=== PATIENT | female | born 1965 | race Caucasian/White ===

== ENCOUNTER 2017-06-03 12:50 | Inpatient (IN) | payer OTHER ==
--- NOTE | 2017-06-03 13:36 | PDOC ---
History of Present Illness - General Chief Complaint: SIRS, Suspected/Possible Stated Complaint: NAUSEA/VOMITING Time Seen by Provider: 06/03/17 13:35 History Source: Patient - History of Present Illness Initial Comments: 06/03/17 14:02 CC: 4 day h/o fever Patient is a 52 y.o. female with a PMH of Aortic Valve replacement ( biosynthetic valve), HTN, Anxiety/Depression who presents c/o 4 day h/o of fever with 1 day h/o vomiting (non-bloody, yellow) and diarrhea (watery, non- odorous, non-bloody). Patient's daughter @ bedside states patient tried Theraflu @ onset of fever, however it did not work, so she contacted patient's PCP, Dr. Lovelace today who recommended ED evaluation. Patient denies any recent travel, sick contacts or medications changes. Patient further denies any chest pain, shortness of breath or abdominal pain. Past History - Past Medical History Allergies/Adverse Reactions: Allergies Allergy/AdvReac Type Severity Reaction Status Date / Time aspirin Allergy Rash Verified 06/03/17 13:23 Home Medications: Ambulatory Orders Zolpidem Tartrate [Ambien] 10 mg PO HS 11/02/13 Lorazepam 1 mg PO BID 06/03/17 Sertraline HCl 50 mg PO ACDIN 06/03/17 Anemia: Yes Asthma: No Cancer: No Cardiac Disorders: Yes (mitral valve replacement, pace maker) CVA: No COPD: No CHF: No Dementia: No Diabetes: No GI Disorders: No Disorders: No HTN: Yes Hypercholesterolemia: No Liver Disease: No Psychiatric Problems: Yes (depression) Seizures: No Thyroid Disease: No - Surgical History Abdominal Surgery: No Appendectomy: No Cardiac Surgery: Yes (mitral valve replacement) Cholecystectomy: No Lung Surgery: No Orthopedic Surgery: No - Immunization History Immunization Up to Date: Yes - Psycho/Social/Smoking Cessation Hx Suicidal Ideation: No Smoking History: Never smoked Hx Alcohol Use: No Drug/Substance Use Hx: No Substance Use Type: None Hx Substance Use Treatment: No Review of Systems - Review of Systems Constitutional: Yes: Chills, Fever HEENTM: No: Blurred Vision, Throat Pain Respiratory: No: Cough, Shortness of Breath Cardiac (ROS): No: Chest Pain, Edema, Lightheadedness, Palpitations ABD/GI: Yes: Diarrhea, Vomiting : Yes: Flank Pain, Urgency Neurological: No: Headache, Numbness, Seizure, Tingling Psychiatric: Yes: Anxiety, Depression All Other Systems: Reviewed and Negative *Physical Exam - Vital Signs Last Vital Signs Temp Pulse Resp BP Pulse Ox 102.1 F H 118 H 20 86/39 98 06/03/17 13:00 06/03/17 13:00 06/03/17 13:00 06/03/17 13:00 06/03/17 13:00 - Physical Exam General Appearance: Yes: Nourished, Appropriately Dressed Neck: positive: Trachea midline, Supple Respiratory/Chest: positive: Lungs Clear, Normal Breath Sounds Cardiovascular: positive: Regular Rhythm, Regular Rate, S1, S2 Gastrointestinal/Abdominal: positive: Normal Bowel Sounds, Soft Musculoskeletal: positive: Normal Inspection, CVA Tenderness (L) Integumentary: positive: Normal Color, Dry, Warm 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 female who presents c/o 4 day h/o of fever with associated vomiting and diarrhea. Patient is SIRS 2/4 (febrile, tachycardia 100's) and c/ o flank pain + dysuria. Suspected source is UTI. PLAN 1. UA/UC 2. CBC, CMP 3. 1 L IV NS 4. Tylenol for fever 06/03/17 15:29 CBC significant for leukocytosis (25). UA significant for 2+ blood, 2+ Leukocyte Esterase. Spoke with Dr. Lynn Pate (admits for Dr. Lovelace). Recommends ICU admission. Accepted for ICU admission as per Dr. Vargas @ 1544 *DC/Admit/Observation/Transfer Diagnosis at time of Disposition: Sepsis - Referrals Referrals: Herminio Lovelace MD [Primary Care Provider] -
--- NOTE | 2017-06-03 13:43 | PDOC ---
Attending Attestation - Resident Resident Name: Dianelys Maya - ED Attending Attestation I have performed the following: I have examined & evaluated the patient, The case was reviewed & discussed with the resident, I agree w/resident's findings & plan, Exceptions are as noted - Physicial Exam PE: GENERAL: Awake, alert, and fully oriented, in no acute distress. Appears ill but nontoxic. HEAD: No signs of trauma EYES: PERRLA, EOMI, sclera anicteric, conjunctiva clear ENT: Auricles normal inspection, hearing grossly normal, nares patent, oropharynx clear without exudates. Dry mucosa NECK: Normal ROM, supple, no lymphadenopathy, JVD, or masses LUNGS: Breath sounds equal, clear to auscultation bilaterally. No wheezes, and no crackles HEART: Tachycardic, +Systolic murmur IV/, no murmurs, rubs or gallops ABDOMEN: Soft, nontender, normoactive bowel sounds. No guarding, no rebound. No masses. +R CVAT. EXTREMITIES: Normal range of motion, no edema. No clubbing or cyanosis. No cords, erythema, or tenderness NEUROLOGICAL: Cranial nerves II through XII grossly intact. Normal speech. Motor and sensation intact. Gait not tested due to hypotension. SKIN: Warm, Dry, normal turgor, no rashes or lesions noted. - Medical Decision Making 06/03/17 14:24 52 yo F history aortic valve replacement presents with fever, N/V/D. Sepsis protocol initiated. Suspect urinary source. Will hydrate and give antipyretics. <Marianela Munoz - Last Filed: 06/03/17 14:22> - HPI HPI: 06/03/17 14:27 Patient is a 52 year old female with pmhx of AVR who presents to the ED with vomiting and fever. Patient reports 4 days of fever with one episode of vomiting today, NB. Patient also reports right flank pain and dysuria. She notes that her PMD prescribed her some medication for her symptoms but the pharmacy is closed today. She also reports low BP at home. PCP - Dr. Lovelace - Medical Decision Making 06/03/17 14:27 Documentation prepared by MONICA Sorenson, acting as medical assistant for Marianela Munoz MD. <Alecia Montague - Last Filed: 06/03/17 15:43>
[2017-06-03] MEDS ORDERED: SODIUM CHLORIDE 1,000 ML IV STA ×3 (14:00→16:38)
[2017-06-03] MEDS ORDERED: ACETAMINOPHEN 1000 MG/100 ML VIAL (NON FORMULARY) IVPB ONE (14:17)
[2017-06-03] MEDS ORDERED: ACETAMINOPHEN INJECTION 100 ML IVPB ONE (14:20)
[2017-06-03 14:29] LABS: MCH 29.6 pg (25.7-33.7); MCHC 33.5 g/dl (32.0-36.0); MEAN CELL VOLUME 88.4 fl (80-96); MEAN PLT VOLUME 8.8 fl (7.5-11.1); PLATELET COUNT 271 K/MM3 (134-434); RDW 13.5 % (11.6-15.6)
[2017-06-03 14:36] LABS: URINE APPEARANCE CLOUDY; URINE BLOOD 2+ (NEGATIVE); URINE COLOR AMBER; URINE GLUCOSE (UA) NEGATIVE (NEGATIVE); URINE KETONE TRACE (NEGATIVE); URINE NITRITE NEGATIVE (NEGATIVE); URINE UROBILINOGEN 4.0 E.U/dl mg/dL (0.2-1.0)
[2017-06-03 14:43] LABS: VENOUS BLOOD GAS HCO3 23.2 meq/L (19-25); VENOUS PH 7.42 (7.32-7.42)
[2017-06-03 14:43] LABS: INR 1.31 (0.82-1.09); PROTHROMBIN TIME (PATIENT) 14.5 SEC (9.98-11.88)
[2017-06-03 14:46] LABS: ACTIVATED PTT 33.2 SECONDS (26.9-34.4)
[2017-06-03 14:52] LABS: URINE LEUK ESTERASE 2+ (NEGATIVE); URINE PROTEIN 2+ (NEGATIVE)
[2017-06-03 14:55] LABS: ALBUMIN 3.2 g/dl (3.4-5.0); ANION GAP 13 (8-16); BILIRUBIN,TOTAL 2.1 mg/dL (0.2-1.0); CO2 23 mmol/L (21-32); CREATININE 1.6 mg/dL (0.55-1.02); GLUCOSE,RANDOM 126 mg/dL (74-106); SGOT/AST 35 U/L (15-37); SGPT/ALT 71 U/L (12-78); TOT PROT 6.7 g/dl (6.4-8.2)
[2017-06-03 14:58] LABS: ALK PHOS 264 U/L (45-117); CPK 88 IU/L (26-192)
[2017-06-03 14:59] LABS: URINE BACTERIA MANY /hpf (NONE SEEN); URINE MUCUS MANY; URINE RBC 26 /hpf (0-3); URINE WBC 179 /hpf (3-5)
[2017-06-03] MEDS ORDERED: PIPERACILLIN/TAZOB 2.25 GM 2.25 GM in DEXTROSE 5%-WATER - 50 ML IVPB ONE (15:04)
[2017-06-03] MEDS ORDERED: PIPERACILLIN/TAZOB 3.375 GM 3.375 GM in DEXTROSE 5%-WATER - 50 ML IVPB ONE (15:13)
[2017-06-03] MEDS ORDERED: PIPERACILLIN/TAZOB 3.375 GM 50 ML IVPB ONE (15:19)
[2017-06-03 15:23] LABS: TROPONIN I < 0.02 ng/ml (0.00-0.05)
[2017-06-03 15:46] LABS: BASOPHIL (MANUAL) 0 % (0-2.0); PLATELET ESTIMATE ADEQUATE (NORMAL)
[2017-06-03] MEDS ORDERED: ACETAMINOPHEN 325 MG TABLET (FP) PO PRN (15:51)
[2017-06-03] MEDS ORDERED: SODIUM CHLORIDE 0.9% 1000 ML INFUS.BAG IV ONE (15:52)
--- NOTE | 2017-06-03 15:54 | HP ---
Admitting History and Physical - Primary Care Physician PCP: Herminio Lovelace - Admission Chief Complaint: fever/ not feeling well History of Present Illness: Patient is a 52 y.o. female with a PMH of Aortic Valve replacement ( biosynthetic valve), HTN, Anxiety/Depression who presents c/o 4 day h/o of fever with 1 day h/o vomiting (non-bloody, yellow). also complains of urinary burning Patient's sister @ bedside states patient tried Theraflu @ onset of fever, however it did not work, so she contacted patient's PCP, Dr. Lovelace today who recommended ED evaluation. Patient denies any recent travel, sick contacts or medications changes. Patient further denies any chest pain, shortness of breath or abdominal pain. pt found to be hypotensive/ tachcardic and having fever pt given fluids and zosyn in er pt seen by me in er Case discussed with Er Resident. Pt to be admitted to icu for sepsis. History Source: Patient, Family Member Limitations to Obtaining History: No Limitations - Past Medical History ...LMP: 11/02/13 Psych: Yes: Anxiety - Past Surgical History Past Surgical History: Yes: Permanent Pacemaker, Valve Replacement - Smoking History Smoking history: Never smoked - Alcohol/Substance Use Hx Alcohol Use: No Home Medications - Allergies Allergies/Adverse Reactions: Allergies Allergy/AdvReac Type Severity Reaction Status Date / Time aspirin Allergy Rash Verified 06/03/17 13:23 - Home Medications Home Medications: Ambulatory Orders Zolpidem Tartrate [Ambien] 10 mg PO HS 11/02/13 Lorazepam 1 mg PO BID 06/03/17 Sertraline HCl 50 mg PO DAILY 06/03/17 Family Disease History - Family Disease History Family History: Unremarkable Review of Systems - Review of Systems Constitutional: reports: Fever, Weakness Eyes: reports: No Symptoms Neck: reports: No Symptoms Cardiovascular: reports: No Symptoms Respiratory: reports: No Symptoms Gastrointestinal: reports: Nausea, Vomiting Genitourinary: reports: Burning Psychiatric: reports: Anxiety Physical Examination Vital Signs: Vital Signs Temperature 102.1 F H 06/03/17 13:00 Pulse Rate 89 06/03/17 15:47 Respiratory Rate 20 06/03/17 15:47 Blood Pressure 83/52 06/03/17 15:47 O2 Sat by Pulse Oximetry (%) 100 06/03/17 15:47 Constitutional: Yes: Anxious, Mild Distress. No: No Distress Eyes: Yes: Conjunctiva Clear HENT: Yes: Other (thraot - clear) Neck: Yes: Supple Cardiovascular: Yes: Regular Rate and Rhythm Respiratory: Yes: CTA Bilaterally Edema: No Peripheral Pulses WNL: Yes Neurological: Yes: WNL, Alert Psychiatric: Yes: Alert Labs: CBC, BMP 06/03/17 14:00 06/03/17 14:00 Imaging - Results Chest X-ray: Report Reviewed Problem List - Problems (1) Sepsis Code(s): A41.9 - SEPSIS, UNSPECIFIED ORGANISM (2) Pyelonephritis Code(s): N12 - TUBULO-INTERSTITIAL NEPHRITIS, NOT SPCF ACUTE OR CHRONIC (3) Hypotension Code(s): I95.9 - HYPOTENSION, UNSPECIFIED (4) Anxiety Code(s): F41.9 - ANXIETY DISORDER, UNSPECIFIED (5) Depression Code(s): F32.9 - MAJOR DEPRESSIVE DISORDER, SINGLE EPISODE, UNSPECIFIED Assessment/Plan admit to icu abx fluids u/s kidneys i/d consult--Dr. Oseguera-- Discussed with ER resident Pt / sister reports has bio-prosthetic valve-- not on a/c. monitor closely cc time- 40 min will follow
[2017-06-03] MEDS: SODIUM CHLORIDE 1,000 ML IV SCH (15:59)
[2017-06-03 17:42] VITALS: BMI 19.1
--- NOTE | 2017-06-03 18:40 | CONSULT ---
Consult Consult Specialty:: ICU Referred by:: Dr. Steven Pate - History of Present Illness Chief Complaint: sepsis likely 2/2 UTI History of Present Illness: 52yo Malay-speaking woman with PMH of biosynthetic Aortic valve replacement ( 1yo ago) and pacemaker who presents with 4xdays of subjective fever/chills and concomitant R flank pain "with the fever". Patient describes urine feeling "hot " when she urinates, which started this morning. She had non-bloody, non- bilious emesis x3 and diarrhea (watery, non-bloody) this morning. Denies having any chest pain, chest palpitations or SOB. She contacted her primary care physician who suggested ED evaluation. Patient does not recall having a prior UTI. No recent infections or hospitalizations. She took prophylactic antibiotics prior to her dental cleaning appointment on 05/16/17 (does not recall specific antibiotic). [facility] ED course notable for: -SIRS 2/4 criteria (T 102.1 F, HR 118) -Leukocytosis (WBC 25K) -UA 2+ blood, 2+ LE, many bacteria, WBC 179, RBC 26 -BP range 86-95/39-60 - Past Medical History ...LMP: 11/02/13 - Alcohol/Substance Use Hx Alcohol Use: No - Smoking History Smoking history: Never smoked Home Medications - Allergies Allergies/Adverse Reactions: Allergies Allergy/AdvReac Type Severity Reaction Status Date / Time aspirin Allergy Rash Verified 06/03/17 13:23 - Home Medications Home Medications: Ambulatory Orders Zolpidem Tartrate [Ambien] 10 mg PO HS 11/02/13 Lorazepam 1 mg PO BID 06/03/17 Sertraline HCl 50 mg PO DAILY 06/03/17 Review of Systems - Review of Systems Constitutional: reports: Chills, Fever Cardiovascular: reports: No Symptoms Respiratory: reports: No Symptoms Gastrointestinal: reports: Diarrhea, Vomiting Genitourinary: reports: Burning, Flank Pain (R) Physical Exam Vital Signs: Vital Signs Temperature 99.6 F 06/03/17 17:59 Pulse Rate 70 06/03/17 17:59 Respiratory Rate 12 06/03/17 17:59 Blood Pressure 95/60 06/03/17 17:59 O2 Sat by Pulse Oximetry (%) 100 06/03/17 17:20 Constitutional: Yes: Well Nourished, No Distress, Calm Eyes: Yes: Conjunctiva Clear. No: Sclera Icterus HENT: Yes: WNL Neck: Yes: Supple. No: Lymphadenopathy Cardiovascular: Yes: Regular Rate and Rhythm, Other (well-healed vertical scar over sternum). No: Gallop, Murmur Respiratory: Yes: CTA Bilaterally Gastrointestinal: Yes: Normal Bowel Sounds, Soft, Other (well healed, epigastric trochar incisions sites (AoVR)). No: Distention, Tenderness Renal/: Yes: Other (mild suprapubic tenderness to deep palpation, mild R CVA tenderness) Edema: No Peripheral Pulses WNL: Yes (2+ DP/PT pulses bilaterally) Labs: 06/03/17 14:00 06/03/17 14:00 INR, PTT INR 1.31 (0.82-1.09) H D 06/03/17 14:00 06/03/17 06/03/17 06/03/17 14:00 14:00 15:50 Lactic Acid 2.5 H* 0.9 Calcium 9.0 Total Bilirubin 2.1 H D AST 35 D ALT 71 D Alkaline Phosphatase 264 H D Creatine Kinase 88 Troponin I < 0.02 Total Protein 6.7 Albumin 3.2 L Urine Color Valentina 06/03/17 14:00 Urine Appearance Cloudy 06/03/17 14:00 Urine pH 5.0 (5.0-8.0) 06/03/17 14:00 Ur Specific [place] 1.025 (1.005-1.025) 06/03/17 14:00 Urine Protein 2+ (NEGATIVE) H 06/03/17 14:00 Urine Glucose (UA) Negative (NEGATIVE) 06/03/17 14:00 Urine Ketones Trace (NEGATIVE) H 06/03/17 14:00 Urine Blood 2+ (NEGATIVE) H 06/03/17 14:00 Urine Nitrite Negative (NEGATIVE) 06/03/17 14:00 Urine Bilirubin 4.0 (NEGATIVE) 06/03/17 14:00 Ur Leukocyte Esterase 2+ (NEGATIVE) H 06/03/17 14:00 Urine RBC 26 /hpf (0-3) 06/03/17 14:00 Urine WBC 179 /hpf (3-5) 06/03/17 14:00 Ur Epithelial Cells Moderate /hpf (FEW) 06/03/17 14:00 Urine Bacteria Many /hpf (NONE SEEN) 06/03/17 14:00 Urine Mucus Many 06/03/17 14:00 Microbiology: Urine Culture - collected 06/03 - pending Blood Culture x2 - collected 06/03 - pending Imaging - Results Chest X-ray: Image Reviewed (No pneumothorax, pleural effusion, or focal consolidation) Assessment/Plan 52yo woman who presents with sepsis likely 2/2 to UTI. CXR revealed no acute pathology. The patient's BP is responding to fluid resuscitation (s/p 4L NS boluses) and her lactic acid is downtrending (2.5 --> 0.9). She is currently afebrile after receiving Acetaminophen. Her labs are notable for significant leukocytosis (WBC 25K) and UA reflecting hematuria and pyuria. #ID -ID consulted -Zosyn 3.375gm IVPB - (received 1 dose ED, 1 dose for 23:00) -Urine/blood cultures pending -Acetaminophen 650mg PO Q6H for fever or pain #CV -patient currently responding to fluid resuscitation s/p 4L NS boluses -Continue 150cc/hr NS -Monitor HD #Renal- patient likely has CALLIE (last recorded Cr - 02/2016, Cr 8 - 05/2015) -Continue fluid resuscitation -Monitor BUN, Cr #F/E/N -IVF - 150cc/hr NS -Monitor daily lytes -Regular diet #PPX -DVT - Heparin 5000U SQ BID -GI ppx not indicated Adriane Joya, PGY-1 Visit type - Emergency Visit Emergency Visit: No - New Patient This patient is new to me today: Yes Date on this admission: 06/03/17 - Critical Care Critical Care patient: Yes Total Critical Care Time (in minutes): 40 Critical Care Statement: The care of this patient involved high complexity decision making to prevent further life threatening deterioration of the patient 's condition and/or to evaluate & treat vital organ system(s) failure or risk of failure.
--- NOTE | 2017-06-03 20:37 | CONSULT ---
Consult Consult Specialty:: Pulm/CCM Reason for Consultation:: UTI, severe sepsis, CALLIE - History of Present Illness History of Present Illness: This is a 52 yo woman PMH: AVR, PPM who presented to ED with 4 days of fever, right sided flank pain, burning urination and nausea and vomiting (NBNBx3). In ED she was found to have be febrile (102), hypotensive (BP 80/40) with leukocytosis (wbc 25), CALLIE (SCr1.6) with pyuria (wbc 127). She was given IV fluids (NS x4) with good response in BP (100/50s). Lactate 0.9. ABX started: zosyn. CXR: w/o focal infiltrate. Patient admitted to ICU for severe sepsis. In the ICU patient awake and alert, hemodynamically stable. - History Source History Provided By: Family Member, Medical Record Limitations to Obtaining History: Language Barrier - Past Medical History ...LMP: 11/02/13 - Past Surgical History Past Surgical History: Yes: Permanent Pacemaker Additional Surgical History: AVR: biosynthetic 2015 - Alcohol/Substance Use Hx Alcohol Use: No - Smoking History Smoking history: Never smoked Home Medications - Allergies Allergies/Adverse Reactions: Allergies Allergy/AdvReac Type Severity Reaction Status Date / Time aspirin Allergy Rash Verified 06/03/17 13:23 - Home Medications Home Medications: Ambulatory Orders Zolpidem Tartrate [Ambien] 10 mg PO HS 11/02/13 Lorazepam 1 mg PO BID 06/03/17 Sertraline HCl 50 mg PO DAILY 06/03/17 Family Disease History - Family Disease History Family History: Unremarkable Review of Systems - Review of Systems Constitutional: reports: Fever, Malaise Gastrointestinal: reports: Nausea, Vomiting Genitourinary: reports: Burning, Flank Pain, Frequency Physical Exam Vital Signs: Vital Signs Temperature 99.3 F 06/03/17 20:00 Pulse Rate 75 06/03/17 20:00 Respiratory Rate 22 06/03/17 20:00 Blood Pressure 92/55 06/03/17 20:00 O2 Sat by Pulse Oximetry (%) 100 06/03/17 18:30 Current Medications Acetaminophen (Tylenol -) 650 mg PO Q6H PRN PRN Reason: FEVER OR PAIN Chlorhexidine Gluconate (Hibiclens For Decolonization -) 1 applic TP HS [facility] Heparin Sodium (Porcine) (Heparin -) 5,000 unit SQ BID [facility] Sodium Chloride (Normal Saline -) 1,000 mls @ 150 mls/hr IV ASDIR [facility] Last Admin: 06/03/17 15:59 Dose: 150 mls/hr Mupirocin (Bactroban Ointment (For Decolonization) -) 1 applic NS BID [facility] Stop: 06/08/17 21:59 Piperacillin Sod/Tazobactam Sod (Zosyn 3.375gm Ivpb (Pre-Docked)) 3.375 gm IVPB Q8H [facility] PRN Reason: Protocol Stop: 06/05/17 07:44 Constitutional: Yes: No Distress Eyes: Yes: Conjunctiva Clear, EOM Intact Cardiovascular: Yes: Other (Paced) Respiratory: Yes: CTA Bilaterally Gastrointestinal: Yes: Normal Bowel Sounds Renal/: Yes: CVA Tenderness - Right Extremities: Yes: WNL Edema: No Neurological: Yes: Oriented Labs: CBCD WBC 25.0 K/mm3 (4.0-10.0) H D 06/03/17 14:00 RBC 3.62 M/mm3 (3.60-5.2) 06/03/17 14:00 Hgb 10.7 GM/dL (10.7-15.3) 06/03/17 14:00 Hct 32.0 % (32.4-45.2) L 06/03/17 14:00 MCV 88.4 fl (80-96) 06/03/17 14:00 MCHC 33.5 g/dl (32.0-36.0) 06/03/17 14:00 RDW 13.5 % (11.6-15.6) 06/03/17 14:00 Plt Count 271 K/MM3 (134-434) 06/03/17 14:00 MPV 8.8 fl (7.5-11.1) 06/03/17 14:00 CMP Sodium 134 mmol/L (136-145) L 06/03/17 14:00 Potassium 3.6 mmol/L (3.5-5.1) 06/03/17 14:00 Chloride 98 mmol/L (98-107) 06/03/17 14:00 Carbon Dioxide 23 mmol/L (21-32) 06/03/17 14:00 Anion Gap 13 (8-16) 06/03/17 14:00 BUN 20 mg/dL (7-18) H D 06/03/17 14:00 Creatinine 1.6 mg/dL (0.55-1.02) H D 06/03/17 14:00 Creat Clearance w eGFR 33.85 (>60) 06/03/17 14:00 Random Glucose 126 mg/dL (74-106) H D 06/03/17 14:00 Calcium 9.0 mg/dL (8.5-10.1) 06/03/17 14:00 Total Bilirubin 2.1 mg/dL (0.2-1.0) H D 06/03/17 14:00 AST 35 U/L (15-37) D 06/03/17 14:00 ALT 71 U/L (12-78) D 06/03/17 14:00 Alkaline Phosphatase 264 U/L (45-117) H D 06/03/17 14:00 Total Protein 6.7 g/dl (6.4-8.2) 06/03/17 14:00 Albumin 3.2 g/dl (3.4-5.0) L 06/03/17 14:00 CARDIAC ENZYMES Creatine Kinase 88 IU/L (26-192) 06/03/17 14:00 Troponin I < 0.02 ng/ml (0.00-0.05) 06/03/17 14:00 Imaging - Results Chest X-ray: Report Reviewed, Image Reviewed (No focal infiltrates) Problem List - Problems (1) UTI (urinary tract infection) Code(s): N39.0 - URINARY TRACT INFECTION, SITE NOT SPECIFIED (2) CALLIE (acute kidney injury) Code(s): N17.9 - ACUTE KIDNEY FAILURE, UNSPECIFIED Assessment/Plan a/p: 52 yo woman w/ UTI, CALLIE likely r//t dehydration, severe sepsis responsive to IVfluids -cont IVF -O2 for sat >90% -Incentive spirometry -cont ABX -culture: blood and urine -Call ID in AM for ABX approval -renal dose medications -DVT prophylaxis -stable for floor transfer in AM [facility] CRANEP Pulm/CCM CCT: 35m
[2017-06-03] MEDS: MUPIROCIN 2% TOPICAL OINTMENT FOR DECOLONIZATION NS SCH (21:21)
[2017-06-03] MEDS: HEPARIN NA (PORCINE) 5,000 UNITS/ML 1ML VIAL SQ SCH (21:21)
[2017-06-03] MEDS ORDERED: CHLORHEXIDINE GLUCONATE 4% CLEANSER FOR DECOLONIZATION TP SCH (22:00)
[2017-06-03] MEDS ORDERED: PIPERACILLIN/TAZOB 3.375 GM/50 ML PRE-DOCKED IVPB ONE ×2 (23:15→23:30)
[2017-06-04 06:14] LABS: BASOPHIL 0.3 % (0-2.0); MCHC 33.6 g/dl (32.0-36.0); MEAN CELL VOLUME 89.2 fl (80-96); MEAN PLT VOLUME 9.4 fl (7.5-11.1); NEUTROPHILS 80.5 % (42.8-82.8); PLATELET COUNT 261 K/MM3 (134-434); RDW 13.8 % (11.6-15.6); WHITE BLOOD COUNT 18.5 K/mm3 (4.0-10.0)
[2017-06-04 06:25] LABS: INR 1.28 (0.82-1.09); PROTHROMBIN TIME (PATIENT) 14.1 SEC (9.98-11.88)
[2017-06-04] MEDS ORDERED: PIPERACILLIN/TAZOB 3.375 GM/50 ML PRE-DOCKED IVPB SCH (07:45)
[2017-06-04 08:30] LABS: ALBUMIN 2.1 g/dl (3.4-5.0); ALK PHOS 186 U/L (45-117); ANION GAP 13 (8-16); BILIRUBIN,TOTAL 1.5 mg/dL (0.2-1.0); CALCIUM 7.7 mg/dL (8.5-10.1); CO2 18 mmol/L (21-32); CREATININE 1.1 mg/dL (0.55-1.02); GLUCOSE,RANDOM 95 mg/dL (74-106); SGPT/ALT 45 U/L (12-78); TOT PROT 4.8 g/dl (6.4-8.2)
[2017-06-04 08:31] LABS: SGOT/AST 27 U/L (15-37)
[2017-06-04] MEDS: SODIUM CHLORIDE 1,000 ML IV SCH ×2 (08:50→18:22)
--- NOTE | 2017-06-04 09:08 | PN ---
Physical Exam: 24H Events: O/N: Tmax 101.6, tachycardic AM: no acute events SUBJECTIVE: Patient seen and examined. Feeling better. No n/v. No dysuria this AM. 1xBM regular this AM. OBJECTIVE: Vital Signs Period Temp Pulse Resp BP Sys/Gregg Pulse Ox Last 24 Hr 98.4 F-101.6 F 69-103 12-27 85-120/53-72 100-100 GENERAL: The patient is awake, alert, and fully oriented, in no acute distress. EYES: sclera anicteric, conjunctiva clear ENT: oropharynx clear without exudates, moist mucous membranes LUNGS: CTAB, no wheezes, rales, or rhonchi HEART: rrr, normal s1/s2, no murmur, rub or gallop. ABDOMEN: Soft, nontender, nondistended : mild R CVA tenderness and mild suprapubic tenderness to deep palpation EXTREMITIES: 2+ pulses, wwp, no edema CBC, BMP 06/04/17 05:00 06/04/17 05:00 Urine Test Results Urine Color Valentina 06/03/17 14:00 Urine Appearance Cloudy 06/03/17 14:00 Urine pH 5.0 (5.0-8.0) 06/03/17 14:00 Ur Specific [place] 1.025 (1.005-1.025) 06/03/17 14:00 Urine Protein 2+ (NEGATIVE) H 06/03/17 14:00 Urine Glucose (UA) Negative (NEGATIVE) 06/03/17 14:00 Urine Ketones Trace (NEGATIVE) H 06/03/17 14:00 Urine Blood 2+ (NEGATIVE) H 06/03/17 14:00 Urine Nitrite Negative (NEGATIVE) 06/03/17 14:00 Urine Bilirubin 4.0 (NEGATIVE) 06/03/17 14:00 Ur Leukocyte Esterase 2+ (NEGATIVE) H 06/03/17 14:00 Urine RBC 26 /hpf (0-3) 06/03/17 14:00 Urine WBC 179 /hpf (3-5) 06/03/17 14:00 Ur Epithelial Cells Moderate /hpf (FEW) 06/03/17 14:00 Urine Bacteria Many /hpf (NONE SEEN) 06/03/17 14:00 Urine Mucus Many 06/03/17 14:00 Microbiology 06/03/17 13:45 Blood - Peripheral Venous Blood Culture - Preliminary Pending Organism (Anaerobic bottle - GN bacilli) Active Medications Acetaminophen (Tylenol -) 650 mg PO Q6H PRN PRN Reason: FEVER OR PAIN Last Admin: 06/04/17 02:10 Dose: 650 mg Chlorhexidine Gluconate (Hibiclens For Decolonization -) 1 applic TP HS [facility] Last Admin: 06/03/17 21:21 Dose: 1 applic Heparin Sodium (Porcine) (Heparin -) 5,000 unit SQ BID [facility] Last Admin: 06/03/17 21:21 Dose: 5,000 unit Sodium Chloride (Normal Saline -) 1,000 mls @ 150 mls/hr IV ASDIR [facility] Last Admin: 06/04/17 08:50 Dose: 150 mls/hr Mupirocin (Bactroban Ointment (For Decolonization) -) 1 applic NS BID [facility] Stop: 06/08/17 21:59 Last Admin: 06/03/17 21:21 Dose: 1 applic Piperacillin Sod/Tazobactam Sod (Zosyn 3.375gm Ivpb (Pre-Docked)) 3.375 gm IVPB Q8H [facility] PRN Reason: Protocol Stop: 06/05/17 07:44 ASSESSMENT/PLAN: 52yo woman who presents with severe sepsis likely 2/2 to UTI. The patient is HD stable s/p fluid resuscitation with improving leukocytosis on Zosyn IV. 1 out of 2 blood cultures grew GN bacilli. Spoke with Dr. James, patient can be transferred to Med/Surg. #ID -ID following, per recommendations increase Zosyn to 4.5gm IVPB -Acetaminophen 650mg PO Q6H for fever or pain -ECHO pending to r/o endocarditis -F/u Blood and urine cultures #CV: HD stable -Continue IVF -Monitor HD #Renal- Cr improving (1.6 -> 1.1) -Continue fluid resuscitation -Monitor BUN, Cr -Avoid nephrotoxic agens #F/E/N -IVF -Monitor daily lytes -Regular diet #PPX -DVT - Heparin 5000U SQ BID -GI ppx not indicated d/w Dr. Jenny Joya, PGY-1 Visit type - Emergency Visit Emergency Visit: No - New Patient This patient is new to me today: No - Critical Care Critical Care patient: Yes Total Critical Care Time (in minutes): 35 Critical Care Statement: The care of this patient involved high complexity decision making to prevent further life threatening deterioration of the patient 's condition and/or to evaluate & treat vital organ system(s) failure or risk of failure.
--- NOTE | 2017-06-04 09:10 | CONSULT ---
Consult Consult Specialty:: Infectious Disease Reason for Consultation:: Urosepsis - History of Present Illness Chief Complaint: fever History of Present Illness: 52 year old female pmh HTN, AV valve replacement (first in 1998, redone 1 year ago at [facility]), depression/anxiety, and pacemaker presents to the ED with 4 day hx of fever, 1 day hx of nonbloody emesis and diarrhea (now resolved) , and body aches. She states that she doesn't recall any inciting event. She states that she took theraflu for fevers, but the fever did not improve. Denies sick contacts, recent travel. Reports living alone with 2 dogs (pugs). In ED, pt was found to have hypotension (86/39), a lactic acid of 2.5, elevated T. bili and AP, and a Tmax of 101.2. A UA was done, which revealed cloudy urine with (+) leukocyte esterase and many bacteria (nitrite negative). She was transferred to the ICU and ID was consulted for management of suspected urosepsis. Denies chest pain, SOB, nausea, vomiting, fevers, chills, abdominal pain, diarrhea, dysuria, hematuria. - History Source History Provided By: Patient, Family Member (Sister) Limitations to Obtaining History: No Limitations - Past Medical History Cardio/Vascular: Yes: Other (Valve replacement 1 year ago) ...LMP: 11/02/13 Psych: Yes: Anxiety - Past Surgical History Past Surgical History: Yes: Permanent Pacemaker, Valve Replacement (Aortic valve replacement) Additional Surgical History: AVR: biosynthetic 2016 - Alcohol/Substance Use Hx Alcohol Use: No - Smoking History Smoking history: Never smoked - Social History Usual Living Arrangement: Alone Place of : Other ([facility]) History of Recent Travel: No Home Medications - Allergies Allergies/Adverse Reactions: Allergies Allergy/AdvReac Type Severity Reaction Status Date / Time aspirin Allergy Rash Verified 06/03/17 13:23 - Home Medications Home Medications: Ambulatory Orders Zolpidem Tartrate [Ambien] 10 mg PO HS 11/02/13 Lorazepam 1 mg PO BID 06/03/17 Sertraline HCl 50 mg PO DAILY 06/03/17 Review of Systems - Review of Systems Constitutional: reports: Fever Eyes: reports: Other (No vision in her R eye since ) HENT: reports: No Symptoms Neck: reports: No Symptoms Cardiovascular: reports: No Symptoms. denies: Chest Pain, Edema, Palpitations, Shortness of Breath Respiratory: denies: Cough, SOB Gastrointestinal: denies: Abdominal Pain, Bloating, Constipation, Diarrhea, Nausea, Vomiting Genitourinary: denies: Burning, Dysuria, Flank Pain, Frequency Musculoskeletal: reports: No Symptoms Integumentary: reports: No Symptoms Neurological: reports: No Symptoms Endocrine: reports: No Symptoms Hematology/Lymphatic: reports: No Symptoms Psychiatric: reports: Anxiety, Depression Physical Exam Vital Signs: Vital Signs Temperature 99.1 F 06/04/17 06:00 Pulse Rate 80 06/04/17 08:00 Respiratory Rate 14 06/04/17 08:00 Blood Pressure 102/63 06/04/17 08:00 O2 Sat by Pulse Oximetry (%) 100 06/03/17 21:00 Constitutional: Yes: No Distress, Calm. No: Anxious Eyes: Yes: Conjunctiva Clear, EOM Intact HENT: Yes: Atraumatic, Normocephalic. No: Nasal Congestion, Pharyngeal Erythema , Rhinnorhea Neck: Yes: Supple, Trachea Midline Cardiovascular: Yes: Regular Rate and Rhythm, S1, S2. No: JVD, Gallop, Murmur, Rub Respiratory: Yes: Regular, CTA Bilaterally. No: Rales, Rhonchi, SOB, Stridor, Tachypnea, Wheezes Gastrointestinal: Yes: Normal Bowel Sounds, Soft. No: Tenderness Musculoskeletal: Yes: WNL Extremities: Yes: WNL Edema: No Peripheral Pulses WNL: Yes Integumentary: Yes: WNL Neurological: Yes: Alert, Oriented ...Motor Strength: WNL Psychiatric: Yes: Alert, Oriented Labs: CBC, BMP 06/04/17 05:00 06/04/17 05:00 Imaging - Results Chest X-ray: Report Reviewed, Image Reviewed Assessment/Plan 52 year old female pmh HTN, AV replacement 1998 (redone last year), anxiety/ depression is being managed in the ICU with suspected urosepsis Urosepsis: BP improved and fever has remitted, patient appears clinically more stable. Aware of prosthetic aortic valve. -Blood cx grew gram (-) bacilli in anaerobic bottle -repeat blood cx in AM -f/u UCx and second blood Cx -Increase zosyn dose to 4.5g Q8hr for 7 days -WBC trending down, monitor in AM -LA has normalized -Order ESR/CRP Elevated LFTs: T bili and Alk Phos elevated but trending down -Order US abdomen and Pelvis/Renal to rule out intra-abdominal process -monitor LFTs in AM
--- NOTE | 2017-06-04 09:17 | PN ---
Teaching Attending Note Name of Resident: Joseph Liao ATTENDING PHYSICIAN STATEMENT I saw and evaluated the patient. I reviewed the resident's note and discussed the case with the resident. I agree with the resident's findings and plan as documented. SUBJECTIVE: four days of fever and chills at home some left lower back pain no dysuria one day of vomiting and diarrhea- now resolved admitted to ICU with fever, lactic acidosis and hypotension she has a bioprosthetic Aortic Valve original placed in 1998- redo last year, had PPM placed as well has not been hospitalized since followed by Dr Sahu OBJECTIVE: Vital Signs Period Temp Pulse Resp BP Sys/Gregg Pulse Ox Last 24 Hr 98.4 F-102.1 F 69-118 12-27 83-120/39-72 98-100 cor-rrr healed sternal incision PPM site no erythema lungs decreased bs at bases abd soft,nt no RUQ pain no CVAT ext no edema no rash CBC, BMP 06/04/17 05:00 06/04/17 05:00 Microbiology 06/03/17 13:45 Blood - Peripheral Venous Blood Culture - Preliminary Pending Organism ASSESSMENT AND PLAN: sepsis gram negative bacteremia UTI abnl lfts-r/o cholycystitis bioprosthetic AVR/PPM continue zosyn- adjust for improving renal function sonogram gallbladder (abnl lfts), bladder, kidney repeat blood cultures in am esr/crp Problem List - Problems (1) Sepsis Code(s): A41.9 - SEPSIS, UNSPECIFIED ORGANISM (2) Gram negative septicemia Code(s): A41.50 - GRAM-NEGATIVE SEPSIS, UNSPECIFIED (3) UTI (urinary tract infection) Code(s): N39.0 - URINARY TRACT INFECTION, SITE NOT SPECIFIED (4) LFTs abnormal Code(s): R79.89 - OTHER SPECIFIED ABNORMAL FINDINGS OF BLOOD CHEMISTRY (5) H/O heart valve replacement with bioprosthetic valve Code(s): Z95.3 - PRESENCE OF XENOGENIC HEART VALVE
[2017-06-04] MEDS ORDERED: PIPERACILLIN/TAZOB 4.5 GM 4.5 GM in DEXTROSE 5%-WATER 100 ML IVPB SCH (10:00)
[2017-06-04] MEDS ORDERED: SERTRALINE HCL 50 MG TABLET (FP) PO SCH (10:00)
[2017-06-04] MEDS ORDERED: LORazepam 1 MG TABLET PO SCH (10:00)
[2017-06-04] MEDS ORDERED: PIPERACILLIN/TAZOB 4.5 GM 100 ML IVPB SCH (10:00)
[2017-06-04] MEDS ORDERED: SODIUM CHLORIDE 1,000 ML IV SCH (10:04)
--- NOTE | 2017-06-04 10:05 | PN ---
Progress Note, Physician Chief Complaint: sister at bedside events noted no chest pain , no sob - Current Medication List Current Medications: Active Medications Acetaminophen (Tylenol -) 650 mg PO Q6H PRN PRN Reason: FEVER OR PAIN Last Admin: 06/04/17 02:10 Dose: 650 mg Chlorhexidine Gluconate (Hibiclens For Decolonization -) 1 applic TP HS [facility] Last Admin: 06/03/17 21:21 Dose: 1 applic Heparin Sodium (Porcine) (Heparin -) 5,000 unit SQ BID [facility] Last Admin: 06/03/17 21:21 Dose: 5,000 unit Sodium Chloride (Normal Saline -) 1,000 mls @ 150 mls/hr IV ASDIR [facility] Last Admin: 06/04/17 08:50 Dose: 150 mls/hr Piperacillin Sod/Tazobactam Sod (Zosyn 4.5gm Ivpb (Pre-Docked)) 100 mls @ 200 mls/hr IVPB Q8H-IV [facility] PRN Reason: Protocol Lorazepam (Ativan -) 1 mg PO BID [facility] Mupirocin (Bactroban Ointment (For Decolonization) -) 1 applic NS BID [facility] Stop: 06/08/17 21:59 Last Admin: 06/03/17 21:21 Dose: 1 applic Sertraline HCl (Zoloft -) 50 mg PO DAILY [facility] Zolpidem Tartrate (Ambien -) 10 mg PO [facility] - Objective Vital Signs: Vital Signs Temperature 99.1 F 06/04/17 06:00 Pulse Rate 80 06/04/17 08:00 Respiratory Rate 14 06/04/17 08:00 Blood Pressure 102/63 06/04/17 08:00 O2 Sat by Pulse Oximetry (%) 100 06/03/17 21:00 Constitutional: Yes: No Distress, Calm Cardiovascular: Yes: Regular Rate and Rhythm, Murmur Respiratory: Yes: CTA Bilaterally Gastrointestinal: Yes: Normal Bowel Sounds, Soft, Tenderness (rt upper quadrant) . No: Distention Edema: No Labs: CBC, BMP 06/04/17 05:00 06/04/17 05:00 INR, PTT INR 1.28 (0.82-1.09) H 06/04/17 05:00 Problem List - Problems (1) CALLIE (acute kidney injury) Code(s): N17.9 - ACUTE KIDNEY FAILURE, UNSPECIFIED (2) Anxiety Code(s): F41.9 - ANXIETY DISORDER, UNSPECIFIED (3) Gram negative septicemia Code(s): A41.50 - GRAM-NEGATIVE SEPSIS, UNSPECIFIED (4) H/O heart valve replacement with bioprosthetic valve Code(s): Z95.3 - PRESENCE OF XENOGENIC HEART VALVE (5) Pyelonephritis Code(s): N12 - TUBULO-INTERSTITIAL NEPHRITIS, NOT SPCF ACUTE OR CHRONIC Assessment/Plan PLAN Check Echo h/o valve placement in 1998 and then in 2014 Blood cultures positive on iv antibiotic BP is better Cardiology evaluation spoke with ID DVT prophylaxis-- Heparin sc decrease iv fluids has tenderness in rt upper quadrant, Alk PO4 is elevated-- check sono
[2017-06-04] MEDS ORDERED: PT OWN MED DRAWER 7, Y5N ONE (10:38)
[2017-06-04] MEDS: HEPARIN NA (PORCINE) 5,000 UNITS/ML 1ML VIAL SQ SCH ×2 (10:41→21:54)
--- NOTE | 2017-06-04 13:18 | PN ---
Teaching Attending Note Name of Resident: Adriane Joya ATTENDING PHYSICIAN STATEMENT I saw and evaluated the patient. I reviewed the resident's note and discussed the case with the resident. I agree with the resident's findings and plan as documented. SUBJECTIVE: Patient seen and examined in the ICU. Awake and alert. Some mild right flank discomfort. Denies CP. Minimal dry cough. BP improved. Intake & Output 06/01/17 06/02/17 06/03/17 06/04/17 23:59 23:59 23:59 23:59 Intake Total 3500 1940 Balance 3500 1940 Weight 120 lb 12.8 oz 118 lb 4.8 oz Last Vital Signs Temp Pulse Resp BP Pulse Ox 99.1 F 72 22 107/63 100 06/04/17 06:00 06/04/17 10:00 06/04/17 10:00 06/04/17 10:00 06/04/17 09:00 Active Medications Acetaminophen (Tylenol -) 650 mg PO Q6H PRN PRN Reason: FEVER OR PAIN Last Admin: 06/04/17 02:10 Dose: 650 mg Chlorhexidine Gluconate (Hibiclens For Decolonization -) 1 applic TP HS [facility] Last Admin: 06/03/17 21:21 Dose: 1 applic Heparin Sodium (Porcine) (Heparin -) 5,000 unit SQ BID [facility] Last Admin: 06/04/17 10:41 Dose: 5,000 unit Piperacillin Sod/Tazobactam Sod (Zosyn 4.5gm Ivpb (Pre-Docked)) 100 mls @ 200 mls/hr IVPB Q8H-IV [facility] PRN Reason: Protocol Last Admin: 06/04/17 10:41 Dose: 200 mls/hr Sodium Chloride (Normal Saline -) 1,000 mls @ 80 mls/hr IV ASDIR [facility] Last Admin: 06/04/17 10:42 Dose: 80 mls/hr Lorazepam (Ativan -) 1 mg PO BID [facility] Last Admin: 06/04/17 10:41 Dose: 1 mg Mupirocin (Bactroban Ointment (For Decolonization) -) 1 applic NS BID [facility] Stop: 06/08/17 21:59 Last Admin: 06/03/17 21:21 Dose: 1 applic Sertraline HCl (Zoloft -) 50 mg PO DAILY [facility] Last Admin: 06/04/17 10:41 Dose: 50 mg Zolpidem Tartrate (Ambien -) 10 mg PO HS [facility] Constitutional: Yes: No Distress Eyes: Yes: Conjunctiva Clear, EOM Intact Cardiovascular: Yes: Other (Paced) Respiratory: Yes: CTA Bilaterally Gastrointestinal: Yes: Normal Bowel Sounds Renal/: Yes: CVA Tenderness - Right Extremities: Yes: WNL Edema: No Neurological: Yes: Oriented Labs: Laboratory Results - last 24 hr 06/03/17 06/03/17 06/03/17 14:00 14:00 14:00 WBC 25.0 H D RBC 3.62 Hgb 10.7 Hct 32.0 L MCV 88.4 MCH 29.6 MCHC 33.5 RDW 13.5 Plt Count 271 MPV 8.8 Neutrophils % Y Neutrophils % (Manual) 75 Band Neuts % (Manual) 14 H Lymphocytes % Y Lymphocytes % (Manual) 5 L Monocytes % Monocytes % (Manual) 6 Eosinophils % Eosinophils % (Manual) 0 Basophils % Basophils % (Manual) 0 Platelet Estimate Adequate INR PTT (Actin FS) VBG pH POC VBG pCO2 POC VBG pO2 Mixed VBG HCO3 Sodium 134 L Potassium 3.6 Chloride 98 Carbon Dioxide 23 Anion Gap 13 BUN 20 H D Creatinine 1.6 H D Creat Clearance w eGFR 33.85 Random Glucose 126 H D Lactic Acid Calcium 9.0 Total Bilirubin 2.1 H D AST 35 D ALT 71 D Alkaline Phosphatase 264 H D Creatine Kinase 88 Troponin I < 0.02 C-Reactive Protein Total Protein 6.7 Albumin 3.2 L Urine Color Valentina Urine Appearance Cloudy Urine pH 5.0 Ur Specific [place] 1.025 Urine Protein 2+ H Urine Glucose (UA) Negative Urine Ketones Trace H Urine Blood 2+ H Urine Nitrite Negative Urine Bilirubin 4.0 Urine Urobilinogen 4.0 e.u/dl H Ur Leukocyte Esterase 2+ H Urine RBC 26 Urine WBC 179 Ur Epithelial Cells Moderate Urine Bacteria Many Urine Mucus Many Blood Type Antibody Screen 06/03/17 06/03/17 06/03/17 14:00 14:00 14:00 WBC RBC Hgb Hct MCV MCH MCHC RDW Plt Count MPV Neutrophils % Neutrophils % (Manual) Band Neuts % (Manual) Lymphocytes % Lymphocytes % (Manual) Monocytes % Monocytes % (Manual) Eosinophils % Eosinophils % (Manual) Basophils % Basophils % (Manual) Platelet Estimate INR 1.31 H D PTT (Actin FS) 33.2 VBG pH POC VBG pCO2 POC VBG pO2 Mixed VBG HCO3 Sodium Potassium Chloride Carbon Dioxide Anion Gap BUN Creatinine Creat Clearance w eGFR Random Glucose Lactic Acid 2.5 H* Calcium Total Bilirubin AST ALT Alkaline Phosphatase Creatine Kinase Cancelled Troponin I Cancelled C-Reactive Protein Total Protein Albumin Urine Color Urine Appearance Urine pH Ur Specific [place] Urine Protein Urine Glucose (UA) Urine Ketones Urine Blood Urine Nitrite Urine Bilirubin Urine Urobilinogen Ur Leukocyte Esterase Urine RBC Urine WBC Ur Epithelial Cells Urine Bacteria Urine Mucus Blood Type Antibody Screen 06/03/17 06/03/17 06/03/17 14:00 14:41 15:50 WBC RBC Hgb Hct MCV MCH MCHC RDW Plt Count MPV Neutrophils % Neutrophils % (Manual) Band Neuts % (Manual) Lymphocytes % Lymphocytes % (Manual) Monocytes % Monocytes % (Manual) Eosinophils % Eosinophils % (Manual) Basophils % Basophils % (Manual) Platelet Estimate INR PTT (Actin FS) VBG pH 7.42 POC VBG pCO2 36.3 L POC VBG pO2 32.4 Mixed VBG HCO3 23.2 Sodium Potassium Chloride Carbon Dioxide Anion Gap BUN Creatinine Creat Clearance w eGFR Random Glucose Lactic Acid 0.9 Calcium Total Bilirubin AST ALT Alkaline Phosphatase Creatine Kinase Troponin I C-Reactive Protein Total Protein Albumin Urine Color Urine Appearance Urine pH Ur Specific [place] Urine Protein Urine Glucose (UA) Urine Ketones Urine Blood Urine Nitrite Urine Bilirubin Urine Urobilinogen Ur Leukocyte Esterase Urine RBC Urine WBC Ur Epithelial Cells Urine Bacteria Urine Mucus Blood Type O POSITIVE Antibody Screen Negative 06/04/17 06/04/17 06/04/17 05:00 05:00 05:00 WBC 18.5 H RBC 3.07 L Hgb 9.2 L D Hct 27.4 L MCV 89.2 MCH 30.0 MCHC 33.6 RDW 13.8 Plt Count 261 MPV 9.4 Neutrophils % 80.5 D Neutrophils % (Manual) Band Neuts % (Manual) Lymphocytes % 8.5 D Lymphocytes % (Manual) Monocytes % 10.7 H Monocytes % (Manual) Eosinophils % 0.0 D Eosinophils % (Manual) Basophils % 0.3 Basophils % (Manual) Platelet Estimate INR 1.28 H PTT (Actin FS) 24.0 L VBG pH POC VBG pCO2 POC VBG pO2 Mixed VBG HCO3 Sodium 141 Potassium 3.7 Chloride 110 H D Carbon Dioxide 18 L D Anion Gap 13 BUN 14 D Creatinine 1.1 H D Creat Clearance w eGFR 52.16 Random Glucose 95 D Lactic Acid Calcium 7.7 L Total Bilirubin 1.5 H D AST 27 D ALT 45 D Alkaline Phosphatase 186 H D Creatine Kinase Troponin I C-Reactive Protein 25.0 H Total Protein 4.8 L D Albumin 2.1 L D Urine Color Urine Appearance Urine pH Ur Specific [place] Urine Protein Urine Glucose (UA) Urine Ketones Urine Blood Urine Nitrite Urine Bilirubin Urine Urobilinogen Ur Leukocyte Esterase Urine RBC Urine WBC Ur Epithelial Cells Urine Bacteria Urine Mucus Blood Type Antibody Screen 06/04/17 05:00 WBC RBC Hgb Hct MCV MCH MCHC RDW Plt Count MPV Neutrophils % Neutrophils % (Manual) Band Neuts % (Manual) Lymphocytes % Lymphocytes % (Manual) Monocytes % Monocytes % (Manual) Eosinophils % Eosinophils % (Manual) Basophils % Basophils % (Manual) Platelet Estimate INR PTT (Actin FS) VBG pH POC VBG pCO2 POC VBG pO2 Mixed VBG HCO3 Sodium Potassium Chloride Carbon Dioxide Anion Gap BUN Creatinine Creat Clearance w eGFR Random Glucose Lactic Acid 0.7 Calcium Total Bilirubin AST ALT Alkaline Phosphatase Creatine Kinase Troponin I C-Reactive Protein Total Protein Albumin Urine Color Urine Appearance Urine pH Ur Specific [place] Urine Protein Urine Glucose (UA) Urine Ketones Urine Blood Urine Nitrite Urine Bilirubin Urine Urobilinogen Ur Leukocyte Esterase Urine RBC Urine WBC Ur Epithelial Cells Urine Bacteria Urine Mucus Blood Type Antibody Screen Problem List - Problems (1) UTI (urinary tract infection) Code(s): N39.0 - URINARY TRACT INFECTION, SITE NOT SPECIFIED (2) CALLIE (acute kidney injury) Code(s): N17.9 - ACUTE KIDNEY FAILURE, UNSPECIFIED (3) Sepsis Assessment/Plan ECHO to R/O endocarditis IVF ABX O2 to maintain saturation Follow final cultures Cardiac Telemetry monitoring Dr Alvarado CCTime 35" The care of this patient involved high complexity decision making to prevent further life threatening deterioration of the patient's condition and/or to evaluate & treat vital organ system(s) failure or risk of failure.
[2017-06-04] MEDS: MUPIROCIN 2% TOPICAL OINTMENT FOR DECOLONIZATION NS SCH ×2 (14:24→21:53)
--- NOTE | 2017-06-04 16:01 | CON.CARD ---
Consult Consult Specialty:: cardiololgy Reason for Consultation:: hx aortic valve replacement; now septic - History of Present Illness Chief Complaint: Presently A&Ox3; no chest pain or dyspnea. History of Present Illness: 52 yr old woman with PMHx metallic aortic valve placed 1998, replaced by bioprosthetic aortic valve 03/2016 at [facility], s/p [employer] DDDR PPM , non-obstructive CAD by coronary angiogram 2015, anxiety/depression, anemia, HTN, hyperlipidemia, chronic lower back pain, insomnia, now admitted with fever and weakness x 4 days, and nausea and vomiting for one day. Denies chest pain or dyspnea; denies dysuria; denies cough. - History Source History Provided By: Patient, Medical Record Limitations to Obtaining History: No Limitations - Past Medical History Cardio/Vascular: Yes: HTN, Hyperlipdemia, Murmur, Other (bioprosthetic aortic valve replacement 1 year ago, after metallic aortic valve placement in 1998.) Reproductive: Yes: Postmenopausal ...LMP: 11/02/13 ...: No Heme/Onc: Yes: Anemia Psych: Yes: Anxiety, Depression Musculoskeletal: Yes: Chronic low back pain - Past Surgical History Past Surgical History: Yes: Permanent Pacemaker, Valve Replacement (Aortic valve replacement) Additional Surgical History: AVR: biosynthetic 03/2016; DDDR PPM 05/2016 - Alcohol/Substance Use Hx Alcohol Use: No History of Substance Use: reports: None - Smoking History Smoking history: Never smoked Have you smoked in the past 12 months: No - Social History Usual Living Arrangement: Alone History of Recent Travel: No Home Medications - Allergies Allergies/Adverse Reactions: Allergies Allergy/AdvReac Type Severity Reaction Status Date / Time aspirin Allergy Rash Verified 06/03/17 13:23 - Home Medications Home Medications: Ambulatory Orders Zolpidem Tartrate [Ambien] 10 mg PO HS 11/02/13 Lorazepam 1 mg PO BID 06/03/17 Sertraline HCl 50 mg PO DAILY 06/03/17 Family Disease History - Family Disease History Family History: Denies Review of Systems - Review of Systems Constitutional: reports: Fever, Loss of Appetite, Weakness Eyes: reports: No Symptoms HENT: reports: No Symptoms Neck: reports: No Symptoms Cardiovascular: reports: No Symptoms Respiratory: reports: No Symptoms Gastrointestinal: reports: Nausea, Vomiting Genitourinary: denies: Burning, Discharge, Dysuria Breasts: reports: No Symptoms Reported Musculoskeletal: reports: Back Pain (chronic) Integumentary: reports: No Symptoms Neurological: reports: No Symptoms Endocrine: reports: No Symptoms Hematology/Lymphatic: reports: No Symptoms Psychiatric: reports: Altered Sleep Pattern, Anxiety, Depression - Risk Factors Known Risk Factors: Yes: Age, Hypercholesterolemia, Hypertension, Other ( diastolic CHF; s/p AoVR) Vital Signs: Vital Signs Temperature 99 F 06/04/17 14:00 Pulse Rate 76 06/04/17 14:00 Respiratory Rate 22 06/04/17 14:00 Blood Pressure 114/69 06/04/17 14:00 O2 Sat by Pulse Oximetry (%) 100 06/04/17 09:00 Constitutional: Yes: Anxious, Mild Distress Eyes: Yes: WNL HENT: Yes: WNL Neck: Yes: WNL Respiratory: Yes: Regular Gastrointestinal: Yes: Soft Renal/: No: Anuria Heart Sounds: Yes: S1, Split S2 Murmur: Yes: Systolic Murmur, Grade 1 Musculoskeletal: Yes: Back Pain (chronic) Extremities: Yes: WNL Edema: No Peripheral Pulses WNL: Yes Integumentary: Yes: WNL Neurological: Yes: Alert, Oriented Psychiatric: Yes: Other (anxiety/depression) - Other Data Labs, Other Data: CBC, BMP 06/04/17 05:00 06/04/17 05:00 INR, PTT INR 1.28 (0.82-1.09) H 06/04/17 05:00 Echo: Pending Prior Cardiac Procedures: Cardiac Catheterization, Valve Surgery Ejection Fraction %: LVEF > or = 40 % Imaging - Results Chest X-ray: Image Reviewed (no acute pathology) EKG: Image Reviewed (atiral-sensed, ventricular paced rhythm) Problem List - Problems (1) Anxiety Code(s): F41.9 - ANXIETY DISORDER, UNSPECIFIED (2) Depression Code(s): F32.9 - MAJOR DEPRESSIVE DISORDER, SINGLE EPISODE, UNSPECIFIED (3) Gram negative septicemia Assessment/Plan: antibiotics per ID. Code(s): A41.50 - GRAM-NEGATIVE SEPSIS, UNSPECIFIED (4) LFTs abnormal Code(s): R79.89 - OTHER SPECIFIED ABNORMAL FINDINGS OF BLOOD CHEMISTRY (5) Sepsis Code(s): A41.9 - SEPSIS, UNSPECIFIED ORGANISM (6) UTI (urinary tract infection) Assessment/Plan: on antibiotics IV. Maintain hydration. Code(s): N39.0 - URINARY TRACT INFECTION, SITE NOT SPECIFIED (7) Aortic valve replaced Assessment/Plan: bioprosthetic AoVR 04/14, with removal of metallic AoVR that had been placed in 1998. F/u ECHO. Code(s): Z95.2 - PRESENCE OF PROSTHETIC HEART VALVE (8) Insomnia Code(s): G47.00 - INSOMNIA, UNSPECIFIED Assessment/Plan ccu time spent: 60 minutes.
--- NOTE | 2017-06-04 18:02 | EKG ---
Test Reason : Blood Pressure : / mmHG Vent. Rate : 086 BPM Atrial Rate : 086 BPM P-R Int : 198 ms QRS Dur : 170 ms QT Int : 446 ms P-R-T Axes : 043 026 056 degrees QTc Int : 533 ms Atrial-sensed ventricular-paced rhythm ABNORMAL ECG WHEN COMPARED WITH ECG OF 11-FEB-2002 11:06, ELECTRONIC VENTRICULAR PACEMAKER HAS REPLACED SINUS RHYTHM Confirmed by MURIEL COLE MD ([id number]) on 06/04/2017 6:00:47 PM Referred By: Confirmed By:UMRIEL COLE MD
[2017-06-04] MEDS: PIPERACILLIN/TAZOB 4.5 GM 100 ML IVPB SCH (18:17)
[2017-06-04] MEDS: ACETAMINOPHEN 325 MG TABLET (FP) PO PRN (18:17)
[2017-06-04] MEDS: LORazepam 1 MG TABLET PO SCH (21:53)
[2017-06-04] MEDS: ZOLPIDEM TARTRATE 5 MG TABLET PO SCH (21:53)
[2017-06-04] MEDS: CHLORHEXIDINE GLUCONATE 4% CLEANSER FOR DECOLONIZATION TP SCH (21:54)
[2017-06-04] MEDS ORDERED: ZOLPIDEM TARTRATE 5 MG TABLET PO SCH (22:00)
[2017-06-05] MEDS: PIPERACILLIN/TAZOB 4.5 GM 100 ML IVPB SCH ×2 (02:25→10:45)
[2017-06-05 06:21] LABS: MCH 29.7 pg (25.7-33.7); MCHC 33.5 g/dl (32.0-36.0); MEAN CELL VOLUME 88.8 fl (80-96); MEAN PLT VOLUME 8.7 fl (7.5-11.1); PLATELET COUNT 337 K/MM3 (134-434); RDW 13.9 % (11.6-15.6); WHITE BLOOD COUNT 16.2 K/mm3 (4.0-10.0)
[2017-06-05 06:36] LABS: ALBUMIN 2.1 g/dl (3.4-5.0); ALK PHOS 194 U/L (45-117); ANION GAP 10 (8-16); BILIRUBIN,DIRECT 1.1 mg/dL (0.0-0.2); BILIRUBIN,TOTAL 1.5 mg/dL (0.2-1.0); CALCIUM 8.3 mg/dL (8.5-10.1); CO2 21 mmol/L (21-32); CREATININE 0.9 mg/dL (0.55-1.02); GLUCOSE,RANDOM 90 mg/dL (74-106); MAGNESIUM 1.9 mg/dL (1.8-2.4); PHOSPHOROUS 2.3 mg/dL (2.5-4.9); SGOT/AST 19 U/L (15-37); SGPT/ALT 38 U/L (12-78)
--- NOTE | 2017-06-05 07:41 | PN ---
Physical Exam: 245H events: yesterday: No acute pathology on abdominal U/S (Renal/Pelvic/Bladder) O/N: Tmax 102.9 AM: -ECHO report pending -Urine & Blood Cx growing E. coli SUBJECTIVE: Patient seen and examined. Feeling better. No nausea or vomiting. No complaints of flank or abdominal pain. Tolerating diet. OBJECTIVE: Vital Signs Period Temp Pulse Resp BP Sys/Gregg Pulse Ox Last 24 Hr 97.6 F-102.9 F 66-98 14-31 102-130/59-89 100-100 Intake & Output 06/02/17 06/03/17 06/04/17 06/05/17 23:59 23:59 23:59 23:59 Intake Total 3500 3720 1260 Output Total 4 Balance 3500 3720 1256 Weight 54.794 kg 53.66 kg 55.52 kg GENERAL: The patient is awake, alert, and fully oriented, in no acute distress LUNGS: CTAB, no wheezes, no crackles, no accessory muscle use HEART: RRR, systolic murmur ABDOMEN: Soft, ntnd EXTREMITIES: 2+ pulses, warm, well-perfused, no LE edema Laboratory Results - last 24 hr 06/04/17 06/05/17 06/05/17 05:00 05:15 05:15 WBC 16.2 H RBC 3.35 L Hgb 10.0 L Hct 29.7 L MCV 88.8 MCH 29.7 MCHC 33.5 RDW 13.9 Plt Count 337 D MPV 8.7 Neutrophils % Y Lymphocytes % Y Sodium 141 141 Potassium 3.7 3.5 Chloride 110 H D 110 H Carbon Dioxide 18 L D 21 Anion Gap 13 10 BUN 14 D 10 D Creatinine 1.1 H D 0.9 Creat Clearance w eGFR 52.16 Random Glucose 95 D 90 Calcium 7.7 L 8.3 L Phosphorus 2.3 L Magnesium 1.9 Total Bilirubin 1.5 H D 1.5 H Direct Bilirubin 1.1 H AST 27 D 19 D ALT 45 D 38 Alkaline Phosphatase 186 H D 194 H C-Reactive Protein 25.0 H Total Protein 4.8 L D 5.0 L Albumin 2.1 L D 2.1 L Microbiology 06/03/17 13:51 Blood - Peripheral Venous Blood Culture - Preliminary NO GROWTH OBTAINED AFTER 24 HOURS, INCUBATION TO CONTINUE FOR 4 DAYS. 06/03/17 13:45 Blood - Peripheral Venous Blood Culture - Preliminary Lactose Fermenting Neg Bacilli 06/03/17 13:51 Urine - Urine Clean Catch Urine Culture - Preliminary Lactose Fermenting Neg Bacilli Active Medications Acetaminophen (Tylenol -) 650 mg PO Q6H PRN PRN Reason: FEVER OR PAIN Last Admin: 06/04/17 18:17 Dose: 650 mg Chlorhexidine Gluconate (Hibiclens For Decolonization -) 1 applic TP HS [facility] Last Admin: 06/04/17 21:54 Dose: 1 applic Heparin Sodium (Porcine) (Heparin -) 5,000 unit SQ BID [facility] Last Admin: 06/04/17 21:54 Dose: 5,000 unit Sodium Chloride (Normal Saline -) 1,000 mls @ 80 mls/hr IV ASDIR [facility] Last Admin: 06/04/17 18:22 Dose: 80 mls/hr Piperacillin Sod/Tazobactam Sod (Zosyn 4.5gm Ivpb (Pre-Docked)) 100 mls @ 200 mls/hr IVPB Q8H-IV [facility] PRN Reason: Protocol Last Admin: 06/05/17 02:25 Dose: 200 mls/hr Lorazepam (Ativan -) 1 mg PO BID [facility] Last Admin: 06/04/17 21:53 Dose: 1 mg Mupirocin (Bactroban Ointment (For Decolonization) -) 1 applic NS BID [facility] Stop: 06/08/17 21:59 Last Admin: 06/04/17 21:53 Dose: 1 applic Sertraline HCl (Zoloft -) 50 mg PO DAILY [facility] Zolpidem Tartrate (Ambien -) 10 mg PO [facility] Last Admin: 06/04/17 21:53 Dose: 10 mg ASSESSMENT/PLAN: 52yo woman who presents with severe sepsis 2/2 to UTI. The patient is HD stable with improving leukocytosis on Zosyn IV. Blood and urine cultures growing E. coli. Patient is stable and awaiting transfer to Med/Surg. #ID -ID antibiotics per ID -Acetaminophen 650mg PO Q6H for fever or pain -ECHO completed, pending interpretation to r/o endocarditis -F/u Blood and urine cultures #CV: stable -Monitor HD #Renal- Cr improving (1.6 -> 1.1) -Monitor BUN, Cr -Avoid nephrotoxic agens #F/E/N -IVF hold -Monitor daily lytes -Regular diet #PPX -DVT - Heparin 5000U SQ BID -GI ppx not indicated d/w Dr. Sam Joya, PGY-1 Visit type - Emergency Visit Emergency Visit: No - New Patient This patient is new to me today: No - Critical Care Critical Care patient: Yes Total Critical Care Time (in minutes): 35 Critical Care Statement: The care of this patient involved high complexity decision making to prevent further life threatening deterioration of the patient 's condition and/or to evaluate & treat vital organ system(s) failure or risk of failure.
--- NOTE | 2017-06-05 07:54 | PN ---
Progress Note, Physician Chief Complaint: ID Parveen Feels well No complaints - Current Medication List Current Medications: Active Medications Acetaminophen (Tylenol -) 650 mg PO Q6H PRN PRN Reason: FEVER OR PAIN Last Admin: 06/04/17 18:17 Dose: 650 mg Chlorhexidine Gluconate (Hibiclens For Decolonization -) 1 applic TP HS [facility] Last Admin: 06/04/17 21:54 Dose: 1 applic Heparin Sodium (Porcine) (Heparin -) 5,000 unit SQ BID [facility] Last Admin: 06/04/17 21:54 Dose: 5,000 unit Sodium Chloride (Normal Saline -) 1,000 mls @ 80 mls/hr IV ASDIR [facility] Last Admin: 06/04/17 18:22 Dose: 80 mls/hr Piperacillin Sod/Tazobactam Sod (Zosyn 4.5gm Ivpb (Pre-Docked)) 100 mls @ 200 mls/hr IVPB Q8H-IV [facility] PRN Reason: Protocol Last Admin: 06/05/17 02:25 Dose: 200 mls/hr Lorazepam (Ativan -) 1 mg PO BID [facility] Last Admin: 06/04/17 21:53 Dose: 1 mg Mupirocin (Bactroban Ointment (For Decolonization) -) 1 applic NS BID [facility] Stop: 06/08/17 21:59 Last Admin: 06/04/17 21:53 Dose: 1 applic Sertraline HCl (Zoloft -) 50 mg PO DAILY [facility] Zolpidem Tartrate (Ambien -) 10 mg PO [facility] Last Admin: 06/04/17 21:53 Dose: 10 mg - Objective Vital Signs: Vital Signs Temperature 97.8 F 06/05/17 06:00 Pulse Rate 94 H 06/05/17 06:00 Respiratory Rate 31 H 06/05/17 06:00 Blood Pressure 130/74 06/05/17 06:00 O2 Sat by Pulse Oximetry (%) 100 06/04/17 21:00 Constitutional: Yes: Well Nourished, No Distress Eyes: Yes: WNL, Conjunctiva Clear Cardiovascular: Yes: Regular Rate and Rhythm, S1, S2. No: Murmur Respiratory: Yes: WNL, Regular, CTA Bilaterally Gastrointestinal: Yes: WNL, Normal Bowel Sounds, Soft. No: Tenderness Edema: No Labs: CBC, BMP 06/05/17 05:15 06/05/17 05:15 INR, PTT INR 1.28 (0.82-1.09) H 06/04/17 05:00 Assessment/Plan Microbiology 06/03/17 13:51 Urine - Urine Clean Catch Urine Culture - Preliminary Lactose Fermenting Neg Bacilli 06/03/17 13:45 Blood - Peripheral Venous Blood Culture - Preliminary Lactose Fermenting Neg Bacilli Laboratory Tests 06/03/17 06/04/17 06/04/17 14:00 05:00 05:00 WBC 25.0 H D 18.5 H Hgb Hct Plt Count INR 1.28 H Total Bilirubin Direct Bilirubin AST ALT Alkaline Phosphatase 06/05/17 06/05/17 05:15 05:15 WBC 16.2 H Hgb 10.0 L Hct 29.7 L Plt Count 337 D INR Total Bilirubin 1.5 H Direct Bilirubin 1.1 H AST 19 D ALT 38 Alkaline Phosphatase 194 H Assessment Gram negative bacteremia Urinary tract source Doing well Concern is the prosthetic valve endocarditis CRP 25 could be on basis or sepsis UTI Plan Await final cultures ? deescalate therapy Repeat blood cultures pending Continue Zosyn as ordered for now Roc YOO
--- NOTE | 2017-06-05 10:14 | PN ---
Progress Note, Physician History of Present Illness: History: 52 year old female pmh HTN, AV valve replacement (first in 1998, redone 1 year ago at [facility]), depression/anxiety, and pacemaker presents to the ED with 4 day hx of fever, 1 day hx of nonbloody emesis and diarrhea (now resolved) , and body aches. She states that she doesn't recall any inciting event. She states that she took theraflu for fevers, but the fever did not improve. Denies sick contacts, recent travel. Reports living alone with 2 dogs (pugs). In ED, pt was found to have hypotension (86/39), a lactic acid of 2.5, elevated T. bili and AP, and a Tmax of 101.2. A UA was done, which revealed cloudy urine with (+) leukocyte esterase and many bacteria (nitrite negative). She was transferred to the ICU and ID was consulted for management of suspected urosepsis. We placed her on zosyn 4.5gm IV Q8. Today, patient feels much better - denies chest pain, SOB, nausea, vomiting, fevers, chills, abdominal pain, diarrhea, dysuria, hematuria. - Current Medication List Current Medications: Active Medications Acetaminophen (Tylenol -) 650 mg PO Q6H PRN PRN Reason: FEVER OR PAIN Last Admin: 06/04/17 18:17 Dose: 650 mg Chlorhexidine Gluconate (Hibiclens For Decolonization -) 1 applic TP HS [facility] Last Admin: 06/04/17 21:54 Dose: 1 applic Heparin Sodium (Porcine) (Heparin -) 5,000 unit SQ BID [facility] Last Admin: 06/04/17 21:54 Dose: 5,000 unit Sodium Chloride (Normal Saline -) 1,000 mls @ 80 mls/hr IV ASDIR [facility] Last Admin: 06/04/17 18:22 Dose: 80 mls/hr Piperacillin Sod/Tazobactam Sod (Zosyn 4.5gm Ivpb (Pre-Docked)) 100 mls @ 200 mls/hr IVPB Q8H-IV [facility] PRN Reason: Protocol Last Admin: 06/05/17 02:25 Dose: 200 mls/hr Lorazepam (Ativan -) 1 mg PO BID [facility] Last Admin: 09/05/17 21:53 Dose: 1 mg Mupirocin (Bactroban Ointment (For Decolonization) -) 1 applic NS BID [facility] Stop: 06/08/17 21:59 Last Admin: 06/04/17 21:53 Dose: 1 applic Sertraline HCl (Zoloft -) 50 mg PO DAILY [facility] Zolpidem Tartrate (Ambien -) 10 mg PO HS [facility] Last Admin: 06/04/17 21:53 Dose: 10 mg - Objective Vital Signs: Vital Signs Temperature 99.0 F 06/05/17 10:00 Pulse Rate 76 06/05/17 10:00 Respiratory Rate 23 06/05/17 10:00 Blood Pressure 107/75 06/05/17 10:00 O2 Sat by Pulse Oximetry (%) 100 06/04/17 21:00 Constitutional: Yes: Well Nourished, No Distress, Calm Eyes: Yes: Conjunctiva Clear, EOM Intact HENT: Yes: Atraumatic, Normocephalic Neck: Yes: Supple, Trachea Midline Cardiovascular: Yes: Regular Rate and Rhythm, Murmur (Systolic murmur noted), S1 , S2. No: JVD, Gallop Respiratory: Yes: Regular, CTA Bilaterally. No: Rales, Rhonchi, SOB, Tachypnea , Wheezes Gastrointestinal: Yes: Normal Bowel Sounds, Soft Genitourinary: No: Miller Present Musculoskeletal: Yes: WNL Extremities: Yes: WNL Edema: No Peripheral Pulses WNL: Yes Integumentary: Yes: WNL Neurological: Yes: Alert, Oriented ...Motor Strength: WNL Psychiatric: Yes: Alert, Oriented Labs: CBC, BMP 06/05/17 05:15 06/05/17 05:15 INR, PTT INR 1.28 (0.82-1.09) H 06/04/17 05:00 Problem List - Problems (1) Depression Code(s): F32.9 - MAJOR DEPRESSIVE DISORDER, SINGLE EPISODE, UNSPECIFIED (2) Gram negative septicemia Code(s): A41.50 - GRAM-NEGATIVE SEPSIS, UNSPECIFIED (3) UTI (urinary tract infection) Code(s): N39.0 - URINARY TRACT INFECTION, SITE NOT SPECIFIED Assessment/Plan 52 year old female pmh HTN, AV replacement 1998 (redone last year), anxiety/ depression is being managed in the ICU with suspected urosepsis Urosepsis: Patient appears clinically stable. vitals are normalized. Aware of prosthetic aortic valve. -Blood cx grew gram (-) bacilli in anaerobic bottle -repeat blood cx in AM -f/u UCx and second blood Cx -Continue zosyn dose to 4.5g Q8hr for 7 days (day 2) -WBC trending down (~16 today) -LA normal -elevated ESR/CRP -abdominal/pelvic ultrasound negative
[2017-06-05] MEDS: LORazepam 1 MG TABLET PO SCH ×2 (10:44→21:37)
[2017-06-05] MEDS: MUPIROCIN 2% TOPICAL OINTMENT FOR DECOLONIZATION NS SCH ×2 (10:44→21:37)
[2017-06-05] MEDS: SERTRALINE HCL 50 MG TABLET (FP) PO SCH (10:44)
[2017-06-05] MEDS: HEPARIN NA (PORCINE) 5,000 UNITS/ML 1ML VIAL SQ SCH ×2 (10:44→21:37)
--- NOTE | 2017-06-05 12:02 | PN ---
Teaching Attending Note Name of Resident: Adriane Joya ATTENDING PHYSICIAN STATEMENT I saw and evaluated the patient. I reviewed the resident's note and discussed the case with the resident. I agree with the resident's findings and plan as documented. SUBJECTIVE: Pt seen and examined in the ICU. Denies fevers or chills. Flank plain resolved. Urine culture growing E coli. OBJECTIVE: Last Vital Signs Temp Pulse Resp BP Pulse Ox 99.0 F 76 23 107/75 100 06/05/17 10:00 06/05/17 10:00 06/05/17 10:00 06/05/17 10:00 06/05/17 09:00 Intake & Output 06/02/17 06/03/17 06/04/17 06/05/17 23:59 23:59 23:59 23:59 Intake Total 3500 3720 1260 Output Total 4 Balance 3500 3720 1256 Weight 120 lb 12.8 oz 118 lb 4.8 oz 122 lb 6.4 oz Gen: NAD in chair Heart: RRR Lung: decreased breath sounds at the bases Abd: soft, nontender Ext: no edema CBC, BMP 06/05/17 05:15 06/05/17 05:15 Active Medications Acetaminophen (Tylenol -) 650 mg PO Q6H PRN PRN Reason: FEVER OR PAIN Last Admin: 06/04/17 18:17 Dose: 650 mg Chlorhexidine Gluconate (Hibiclens For Decolonization -) 1 applic TP HS [facility] Last Admin: 06/04/17 21:54 Dose: 1 applic Heparin Sodium (Porcine) (Heparin -) 5,000 unit SQ BID [facility] Last Admin: 06/05/17 10:44 Dose: 5,000 unit Sodium Chloride (Normal Saline -) 1,000 mls @ 80 mls/hr IV ASDIR [facility] Last Admin: 06/04/17 18:22 Dose: 80 mls/hr Piperacillin Sod/Tazobactam Sod (Zosyn 4.5gm Ivpb (Pre-Docked)) 100 mls @ 200 mls/hr IVPB Q8H-IV [facility] PRN Reason: Protocol Last Admin: 06/05/17 10:45 Dose: 200 mls/hr Lorazepam (Ativan -) 1 mg PO BID [facility] Last Admin: 06/05/17 10:44 Dose: 1 mg Mupirocin (Bactroban Ointment (For Decolonization) -) 1 applic NS BID [facility] Stop: 06/08/17 21:59 Last Admin: 06/05/17 10:44 Dose: 1 applic Sertraline HCl (Zoloft -) 50 mg PO DAILY [facility] Last Admin: 06/05/17 10:44 Dose: 50 mg Zolpidem Tartrate (Ambien -) 10 mg PO [facility] Last Admin: 06/04/17 21:53 Dose: 10 mg ASSESSMENT AND PLAN: UTI Gram Negative Bacteremia Sepsis h/o bio AVR - continue antibiotics - f/u cultures - IVF - OOB to chair - DVT prophylaxis - can monitor on floor
--- NOTE | 2017-06-05 12:52 | PN ---
Progress Note, Physician History of Present Illness: 52 yr old woman with PMHx metallic aortic valve placed 1998, replaced by bioprosthetic aortic valve 03/2016 at [facility], s/p [employer] DDDR PPM , non-obstructive CAD by coronary angiogram 2015, anxiety/depression, anemia, HTN, hyperlipidemia, chronic lower back pain, insomnia, now admitted with fever and weakness x 4 days, and nausea and vomiting for one day. Denies chest pain or dyspnea; denies dysuria; denies cough. - Current Medication List Current Medications: Active Medications Acetaminophen (Tylenol -) 650 mg PO Q6H PRN PRN Reason: FEVER OR PAIN Last Admin: 06/04/17 18:17 Dose: 650 mg Chlorhexidine Gluconate (Hibiclens For Decolonization -) 1 applic TP HS [facility] Last Admin: 06/04/17 21:54 Dose: 1 applic Heparin Sodium (Porcine) (Heparin -) 5,000 unit SQ BID [facility] Last Admin: 06/05/17 10:44 Dose: 5,000 unit Sodium Chloride (Normal Saline -) 1,000 mls @ 80 mls/hr IV ASDIR [facility] Last Admin: 06/04/17 18:22 Dose: 80 mls/hr Piperacillin Sod/Tazobactam Sod (Zosyn 4.5gm Ivpb (Pre-Docked)) 100 mls @ 200 mls/hr IVPB Q8H-IV [facility] PRN Reason: Protocol Last Admin: 06/05/17 10:45 Dose: 200 mls/hr Lorazepam (Ativan -) 1 mg PO BID [facility] Last Admin: 06/05/17 10:44 Dose: 1 mg Mupirocin (Bactroban Ointment (For Decolonization) -) 1 applic NS BID [facility] Stop: 06/08/17 21:59 Last Admin: 06/05/17 10:44 Dose: 1 applic Sertraline HCl (Zoloft -) 50 mg PO DAILY [facility] Last Admin: 06/05/17 10:44 Dose: 50 mg Zolpidem Tartrate (Ambien -) 10 mg PO HS [facility] Last Admin: 06/04/17 21:53 Dose: 10 mg - Objective Vital Signs: Vital Signs Temperature 99.0 F 06/05/17 10:00 Pulse Rate 76 06/05/17 10:00 Respiratory Rate 23 06/05/17 10:00 Blood Pressure 107/75 06/05/17 10:00 O2 Sat by Pulse Oximetry (%) 100 06/05/17 09:00 Eyes: Yes: WNL, Conjunctiva Clear, EOM Intact HENT: Yes: WNL, Atraumatic, Normocephalic Neck: Yes: WNL, Supple, Trachea Midline Cardiovascular: Yes: WNL, Regular Rate and Rhythm, Murmur Respiratory: Yes: WNL, Regular, CTA Bilaterally Gastrointestinal: Yes: WNL, Normal Bowel Sounds Genitourinary: Yes: WNL Musculoskeletal: Yes: WNL Extremities: Yes: WNL Edema: No Integumentary: Yes: WNL Neurological: Yes: WNL, Alert, Oriented ...Motor Strength: WNL Psychiatric: Yes: WNL Labs: CBC, BMP 06/05/17 05:15 06/05/17 05:15 INR, PTT INR 1.28 (0.82-1.09) H 06/04/17 05:00 Assessment/Plan - Problems (1) Anxiety Code(s): F41.9 - ANXIETY DISORDER, UNSPECIFIED (2) Depression Code(s): F32.9 - MAJOR DEPRESSIVE DISORDER, SINGLE EPISODE, UNSPECIFIED (3) Gram negative septicemia Assessment/Plan: antibiotics per ID. Code(s): A41.50 - GRAM-NEGATIVE SEPSIS, UNSPECIFIED (4) LFTs abnormal Code(s): R79.89 - OTHER SPECIFIED ABNORMAL FINDINGS OF BLOOD CHEMISTRY (5) Sepsis Code(s): A41.9 - SEPSIS, UNSPECIFIED ORGANISM (6) UTI (urinary tract infection) Assessment/Plan: on antibiotics IV. Maintain hydration. Code(s): N39.0 - URINARY TRACT INFECTION, SITE NOT SPECIFIED (7) Aortic valve replaced Assessment/Plan: bioprosthetic AoVR 04/14, with removal of metallic AoVR that had been placed in 1998. F/u ECHO. Code(s): Z95.2 - PRESENCE OF PROSTHETIC HEART VALVE (8) Insomnia Code(s): G47.00 - INSOMNIA, UNSPECIFIED Assessment/Plan ccu time spent: 35 minutes.
--- NOTE | 2017-06-05 12:59 | PN ---
Progress Note, Physician Chief Complaint: No complaints Feels well No SOB or chest pain - Current Medication List Current Medications: Active Medications Acetaminophen (Tylenol -) 650 mg PO Q6H PRN PRN Reason: FEVER OR PAIN Last Admin: 06/04/17 18:17 Dose: 650 mg Chlorhexidine Gluconate (Hibiclens For Decolonization -) 1 applic TP HS [facility] Last Admin: 06/04/17 21:54 Dose: 1 applic Heparin Sodium (Porcine) (Heparin -) 5,000 unit SQ BID [facility] Last Admin: 06/05/17 10:44 Dose: 5,000 unit Sodium Chloride (Normal Saline -) 1,000 mls @ 80 mls/hr IV ASDIR [facility] Last Admin: 06/04/17 18:22 Dose: 80 mls/hr Piperacillin Sod/Tazobactam Sod (Zosyn 4.5gm Ivpb (Pre-Docked)) 100 mls @ 200 mls/hr IVPB Q8H-IV [facility] PRN Reason: Protocol Last Admin: 06/05/17 10:45 Dose: 200 mls/hr Lorazepam (Ativan -) 1 mg PO BID [facility] Last Admin: 06/05/17 10:44 Dose: 1 mg Mupirocin (Bactroban Ointment (For Decolonization) -) 1 applic NS BID [facility] Stop: 06/08/17 21:59 Last Admin: 06/05/17 10:44 Dose: 1 applic Sertraline HCl (Zoloft -) 50 mg PO DAILY [facility] Last Admin: 06/05/17 10:44 Dose: 50 mg Zolpidem Tartrate (Ambien -) 10 mg PO [facility] Last Admin: 06/04/17 21:53 Dose: 10 mg - Objective Vital Signs: Vital Signs Temperature 99.0 F 06/05/17 10:00 Pulse Rate 76 06/05/17 10:00 Respiratory Rate 23 06/05/17 10:00 Blood Pressure 107/75 06/05/17 10:00 O2 Sat by Pulse Oximetry (%) 100 06/05/17 09:00 Constitutional: Yes: No Distress, Calm Cardiovascular: Yes: Regular Rate and Rhythm, Murmur Respiratory: Yes: CTA Bilaterally Gastrointestinal: Yes: Normal Bowel Sounds, Soft. No: Tenderness Edema: No Labs: CBC, BMP 06/05/17 05:15 06/05/17 05:15 INR, PTT INR 1.28 (0.82-1.09) H 06/04/17 05:00 Problem List - Problems (1) CALLIE (acute kidney injury) Code(s): N17.9 - ACUTE KIDNEY FAILURE, UNSPECIFIED (2) Anxiety Code(s): F41.9 - ANXIETY DISORDER, UNSPECIFIED (3) Gram negative septicemia Code(s): A41.50 - GRAM-NEGATIVE SEPSIS, UNSPECIFIED (4) H/O heart valve replacement with bioprosthetic valve Code(s): Z95.3 - PRESENCE OF XENOGENIC HEART VALVE (5) Pyelonephritis Code(s): N12 - TUBULO-INTERSTITIAL NEPHRITIS, NOT SPCF ACUTE OR CHRONIC Assessment/Plan PLAN Check Echo-- pending h/o valve placement in 1998 and then in 2014 Blood cultures positive-- ecoli, urine culture positive as well. Blood cultures have been repeated on iv antibiotic BP is better Cardiology evaluation appreciated spoke with ID DVT prophylaxis-- Heparin sc decrease iv fluids Abd sono- no cholecystitis
[2017-06-05] MEDS ORDERED: DEXTROSE 5%-WATER 100 ML IVPB ONE (17:33)
[2017-06-05] MEDS ORDERED: PIPERACILLIN/TAZOBACTAM 4.5 GM VIAL IVPB ONE (17:33)
[2017-06-05] MEDS: PIPERACILLIN/TAZOB 4.5 GM 4.5 GM in DEXTROSE 5%-WATER 100 ML IVPB SCH (17:38)
[2017-06-05] MEDS: SODIUM CHLORIDE 1,000 ML IV SCH (21:37)
[2017-06-05] MEDS: ZOLPIDEM TARTRATE 5 MG TABLET PO SCH (21:37)
[2017-06-05] MEDS: CHLORHEXIDINE GLUCONATE 4% CLEANSER FOR DECOLONIZATION TP SCH (21:37)
[2017-06-06] MEDS ORDERED: PIPERACILLIN/TAZOBACTAM 4.5 GM VIAL IVPB ONE ×2 (01:36→09:50)
[2017-06-06] MEDS ORDERED: DEXTROSE 5%-WATER 100 ML IVPB ONE ×3 (01:37→14:33)
[2017-06-06] MEDS: PIPERACILLIN/TAZOB 4.5 GM 4.5 GM in DEXTROSE 5%-WATER 100 ML IVPB SCH ×2 (01:43→09:59)
[2017-06-06 03:31] LABS: CHOLESTEROL 158 mg/dL (50-200)
[2017-06-06 03:39] LABS: THYROID STIMULATING HORMONE 0.85 uIU/ml (0.358-3.74)
--- NOTE | 2017-06-06 09:00 | PN ---
Progress Note, Physician History of Present Illness: History: 52 year old female pmh HTN, AV valve replacement (first in 1998, redone 1 year ago at [facility]), depression/anxiety, and pacemaker presents to the ED with 4 day hx of fever, 1 day hx of nonbloody emesis and diarrhea (now resolved) , and body aches. She states that she doesn't recall any inciting event. She states that she took theraflu for fevers, but the fever did not improve. Denies sick contacts, recent travel. Reports living alone with 2 dogs (pugs). In ED, pt was found to have hypotension (86/39), a lactic acid of 2.5, elevated T. bili and AP, and a Tmax of 101.2. A UA was done, which revealed cloudy urine with (+) leukocyte esterase and many bacteria (nitrite negative). She was transferred to the ICU and ID was consulted for management of suspected urosepsis. We placed her on zosyn 4.5gm IV Q8. Progress: Today, patient is transferred to the floors and states that she feels much better than she did yesterday. Denies chest pain, SOB, nausea, vomiting, fevers , chills, abdominal pain, diarrhea, dysuria, hematuria. - Current Medication List Current Medications: Active Medications Acetaminophen (Tylenol -) 650 mg PO Q6H PRN PRN Reason: FEVER OR PAIN Last Admin: 06/04/17 18:17 Dose: 650 mg Chlorhexidine Gluconate (Hibiclens For Decolonization -) 1 applic TP HS [facility] Last Admin: 06/05/17 21:37 Dose: Not Given Heparin Sodium (Porcine) (Heparin -) 5,000 unit SQ BID [facility] Last Admin: 06/05/17 21:37 Dose: 5,000 unit Sodium Chloride (Normal Saline -) 1,000 mls @ 80 mls/hr IV ASDIR [facility] Last Admin: 06/05/17 21:37 Dose: 80 mls/hr Piperacillin Sod/Tazobactam (Sod 4.5 gm/ Dextrose) 100 mls @ 200 mls/hr IVPB Q8H-IV [facility] PRN Reason: Protocol Last Admin: 06/06/17 01:43 Dose: 200 mls/hr Lorazepam (Ativan -) 1 mg PO BID [facility] Last Admin: 06/05/17 21:37 Dose: 1 mg Mupirocin (Bactroban Ointment (For Decolonization) -) 1 applic NS BID [facility] Stop: 06/08/17 21:59 Last Admin: 06/05/17 21:37 Dose: Not Given Sertraline HCl (Zoloft -) 50 mg PO DAILY [facility] Last Admin: 06/05/17 10:44 Dose: 50 mg Zolpidem Tartrate (Ambien -) 10 mg PO HS [facility] Last Admin: 06/05/17 21:37 Dose: 10 mg - Objective Vital Signs: Vital Signs Temperature 99 F 06/06/17 05:41 Pulse Rate 94 H 06/06/17 05:41 Respiratory Rate 18 06/06/17 05:41 Blood Pressure 104/48 06/06/17 05:41 O2 Sat by Pulse Oximetry (%) 100 06/05/17 09:00 Constitutional: Yes: Well Nourished, No Distress, Calm Eyes: Yes: Conjunctiva Clear, EOM Intact HENT: Yes: Atraumatic, Normocephalic Neck: Yes: Supple, Trachea Midline Cardiovascular: Yes: Regular Rate and Rhythm, Murmur (Systolic murmur appreciated), S1, S2. No: Gallop, Rub Respiratory: Yes: Regular, CTA Bilaterally. No: Rales, Rhonchi, SOB, Stridor, Tachypnea, Wheezes Gastrointestinal: Yes: Normal Bowel Sounds, Soft. No: Distention, Tenderness Genitourinary: No: Miller Present Musculoskeletal: Yes: WNL Extremities: Yes: WNL Edema: No Peripheral Pulses WNL: Yes Integumentary: Yes: WNL Neurological: Yes: Alert, Oriented, Cran Nerves II-XII Intact ...Motor Strength: WNL Psychiatric: Yes: Alert, Oriented Labs: CBC, BMP 06/05/17 05:15 06/05/17 05:15 INR, PTT INR 1.28 (0.82-1.09) H 06/04/17 05:00 - ....Imaging Ultrasound: Report Reviewed Problem List - Problems (1) Depression Code(s): F32.9 - MAJOR DEPRESSIVE DISORDER, SINGLE EPISODE, UNSPECIFIED (2) Gram negative septicemia Code(s): A41.50 - GRAM-NEGATIVE SEPSIS, UNSPECIFIED (3) UTI (urinary tract infection) Code(s): N39.0 - URINARY TRACT INFECTION, SITE NOT SPECIFIED Assessment/Plan 52 year old female pmh HTN, AV replacement 1998 (redone last year), anxiety/ depression is being managed in the ICU with suspected urosepsis Urosepsis: Patient appears clinically stable. vitals are normalized. Aware of prosthetic aortic valve. Blood cx initially grew gram (-) bacilli in anaerobic bottle -repeat blood cx negative -can de-escalate abcx due to neg blood cx; DC zosyn -begin rocephin 2g QD -WBC trending down -LA normal -elevated ESR/CRP -abdominal/pelvic ultrasound negative
[2017-06-06] MEDS: HEPARIN NA (PORCINE) 5,000 UNITS/ML 1ML VIAL SQ SCH ×2 (09:58→22:09)
[2017-06-06] MEDS: LORazepam 1 MG TABLET PO SCH ×2 (09:58→22:09)
[2017-06-06] MEDS: MUPIROCIN 2% TOPICAL OINTMENT FOR DECOLONIZATION NS SCH ×2 (09:58→22:07)
[2017-06-06] MEDS: SERTRALINE HCL 50 MG TABLET (FP) PO SCH (09:59)
--- NOTE | 2017-06-06 10:33 | PN ---
Teaching Attending Note Name of Resident: Joseph Liao ATTENDING PHYSICIAN STATEMENT I saw and evaluated the patient. I reviewed the resident's note and discussed the case with the resident. I agree with the resident's findings and plan as documented. SUBJECTIVE: No complaints No dysuria/ hematuria No suprapubic/ flank pain Temps, WBC improved OBJECTIVE: Afebrile cor S1S2 +m No CVAT/ suprapubic tenderness ASSESSMENT AND PLAN: E coli bacteremia/ sepsis secondary to source Fever/ leukocytosis S/P AVR Substitute ceftriaxone 2gm q24h
[2017-06-06] MEDS ORDERED: cefTRIAXone 2 GM/100 ML BAG (PRE-DOCKED) IVPB SCH (11:15)
--- NOTE | 2017-06-06 11:57 | PN ---
Progress Note, Physician Chief Complaint: Pt sitting up at bedside; good appetite; no chest pain or dyspnea. History of Present Illness: 52 yr old woman with PMHx metallic aortic valve placed 1998, replaced by bioprosthetic aortic valve 03/2016 at [facility], [place], s/p [employer] DDDR PPM , non-obstructive CAD by coronary angiogram 2015, anxiety/depression, anemia, HTN, hyperlipidemia, chronic lower back pain, insomnia, now admitted with fever and weakness x 4 days, and nausea and vomiting for one day. Denies chest pain or dyspnea; denies dysuria; denies cough. - Current Medication List Current Medications: Active Medications Acetaminophen (Tylenol -) 650 mg PO Q6H PRN PRN Reason: FEVER OR PAIN Last Admin: 06/04/17 18:17 Dose: 650 mg Chlorhexidine Gluconate (Hibiclens For Decolonization -) 1 applic TP HS [facility] Last Admin: 06/05/17 21:37 Dose: Not Given Heparin Sodium (Porcine) (Heparin -) 5,000 unit SQ BID [facility] Last Admin: 06/06/17 09:58 Dose: 5,000 unit Sodium Chloride (Normal Saline -) 1,000 mls @ 80 mls/hr IV ASDIR ZULEYMA Last Admin: 06/05/17 21:37 Dose: 80 mls/hr Ceftriaxone Sodium 2 gm/ (Dextrose) 100 mls @ 200 mls/hr IVPB DAILY [facility] Lorazepam (Ativan -) 1 mg PO BID [facility] Last Admin: 06/06/17 09:58 Dose: 1 mg Mupirocin (Bactroban Ointment (For Decolonization) -) 1 applic NS BID [facility] Stop: 06/08/17 21:59 Last Admin: 06/06/17 09:58 Dose: Not Given Sertraline HCl (Zoloft -) 50 mg PO DAILY [facility] Last Admin: 06/06/17 09:59 Dose: 50 mg Zolpidem Tartrate (Ambien -) 10 mg PO [facility] Last Admin: 06/05/17 21:37 Dose: 10 mg - Objective Vital Signs: Vital Signs Temperature 99 F 06/06/17 05:41 Pulse Rate 94 H 06/06/17 05:41 Respiratory Rate 18 06/06/17 05:41 Blood Pressure 104/48 06/06/17 05:41 O2 Sat by Pulse Oximetry (%) 100 06/05/17 09:00 Constitutional: Yes: Calm Eyes: Yes: WNL HENT: Yes: WNL Neck: Yes: WNL Cardiovascular: Yes: Regular Rate and Rhythm, S1, S2 (split) Respiratory: Yes: Regular Gastrointestinal: Yes: Soft ...Rectal Exam: Yes: Deferred Genitourinary: No: Anuria Musculoskeletal: Yes: WNL Extremities: Yes: WNL Edema: No Peripheral Pulses WNL: Yes Integumentary: Yes: WNL Neurological: Yes: WNL Psychiatric: Yes: WNL Labs: CBC, BMP 06/05/17 05:15 06/05/17 05:15 INR, PTT INR 1.28 (0.82-1.09) H 06/04/17 05:00 Problem List - Problems (1) Anxiety Code(s): F41.9 - ANXIETY DISORDER, UNSPECIFIED (2) Depression Code(s): F32.9 - MAJOR DEPRESSIVE DISORDER, SINGLE EPISODE, UNSPECIFIED (3) Gram negative septicemia Assessment/Plan: antibiotics changed today per ID. Code(s): A41.50 - GRAM-NEGATIVE SEPSIS, UNSPECIFIED (4) LFTs abnormal Code(s): R79.89 - OTHER SPECIFIED ABNORMAL FINDINGS OF BLOOD CHEMISTRY (5) Sepsis Code(s): A41.9 - SEPSIS, UNSPECIFIED ORGANISM (6) UTI (urinary tract infection) Assessment/Plan: E. coli on antibiotics IV. Maintain hydration. Code(s): N39.0 - URINARY TRACT INFECTION, SITE NOT SPECIFIED (7) Aortic valve replaced Assessment/Plan: bioprosthetic AoVR 04/14, with removal of metallic AoVR that had been placed in 1998. ECHO: normal LVEF; aortic valve is well-seated; mild-moderate AR Code(s): Z95.2 - PRESENCE OF PROSTHETIC HEART VALVE (8) Insomnia Code(s): G47.00 - INSOMNIA, UNSPECIFIED
[2017-06-06] MEDS: CEFTRIAXONE 2 GM in DEXTROSE 5%-WATER 100 ML IVPB SCH (14:38)
[2017-06-06] MEDS: SODIUM CHLORIDE 1,000 ML IV SCH (15:16)
--- NOTE | 2017-06-06 15:59 | PN ---
Progress Note, Physician Chief Complaint: patient sitting up in chair Now she is on the regular floor ambulating okay - Current Medication List Current Medications: Active Medications Acetaminophen (Tylenol -) 650 mg PO Q6H PRN PRN Reason: FEVER OR PAIN Last Admin: 06/04/17 18:17 Dose: 650 mg Chlorhexidine Gluconate (Hibiclens For Decolonization -) 1 applic TP HS [facility] Last Admin: 06/05/17 21:37 Dose: Not Given Heparin Sodium (Porcine) (Heparin -) 5,000 unit SQ BID [facility] Last Admin: 06/06/17 09:58 Dose: 5,000 unit Sodium Chloride (Normal Saline -) 1,000 mls @ 80 mls/hr IV ASDIR [facility] Last Admin: 06/06/17 15:16 Dose: 80 mls/hr Ceftriaxone Sodium 2 gm/ (Dextrose) 100 mls @ 200 mls/hr IVPB DAILY [facility] Last Admin: 06/06/17 14:38 Dose: 200 mls/hr Lorazepam (Ativan -) 1 mg PO BID [facility] Last Admin: 06/06/17 09:58 Dose: 1 mg Mupirocin (Bactroban Ointment (For Decolonization) -) 1 applic NS BID [facility] Stop: 06/08/17 21:59 Last Admin: 06/06/17 09:58 Dose: Not Given Sertraline HCl (Zoloft -) 50 mg PO DAILY [facility] Last Admin: 06/06/17 09:59 Dose: 50 mg Zolpidem Tartrate (Ambien -) 10 mg PO [facility] Last Admin: 06/05/17 21:37 Dose: 10 mg - Objective Vital Signs: Vital Signs Temperature 98.0 F 06/06/17 14:10 Pulse Rate 73 06/06/17 14:10 Respiratory Rate 20 06/06/17 08:00 Blood Pressure 129/75 06/06/17 14:10 O2 Sat by Pulse Oximetry (%) 97 06/06/17 08:00 Constitutional: Yes: No Distress, Calm Cardiovascular: Yes: Regular Rate and Rhythm, Murmur Respiratory: Yes: CTA Bilaterally Gastrointestinal: Yes: Normal Bowel Sounds, Soft. No: Distention, Tenderness Edema: No Labs: CBC, BMP 06/05/17 05:15 06/05/17 05:15 INR, PTT INR 1.28 (0.82-1.09) H 06/04/17 05:00 Problem List - Problems (1) CALLIE (acute kidney injury) Code(s): N17.9 - ACUTE KIDNEY FAILURE, UNSPECIFIED (2) Anxiety Code(s): F41.9 - ANXIETY DISORDER, UNSPECIFIED (3) Gram negative septicemia Code(s): A41.50 - GRAM-NEGATIVE SEPSIS, UNSPECIFIED (4) H/O heart valve replacement with bioprosthetic valve Code(s): Z95.3 - PRESENCE OF XENOGENIC HEART VALVE (5) Pyelonephritis Code(s): N12 - TUBULO-INTERSTITIAL NEPHRITIS, NOT SPCF ACUTE OR CHRONIC Assessment/Plan PLAN negative blood culturesrepeated h/o valve placement in 1998 and then in 2014 Blood cultures positive-- ecoli, urine culture positive as well. on iv antibiotic-- changed to ceftriaxone by infectious disease BP is better DVT prophylaxis-- Heparin sc discontinue iv fluids Abd sono- no cholecystitis
[2017-06-06] MEDS: CHLORHEXIDINE GLUCONATE 4% CLEANSER FOR DECOLONIZATION TP SCH (22:07)
[2017-06-06] MEDS: ZOLPIDEM TARTRATE 5 MG TABLET PO SCH (22:09)
[2017-06-07] MEDS: SODIUM CHLORIDE 1,000 ML IV SCH ×2 (06:17→16:18)
[2017-06-07 09:18] LABS: MCH 30.3 pg (25.7-33.7); MCHC 34.7 g/dl (32.0-36.0); MEAN CELL VOLUME 87.4 fl (80-96); MEAN PLT VOLUME 8.4 fl (7.5-11.1); PLATELET COUNT 451 K/MM3 (134-434); RDW 14.2 % (11.6-15.6); WHITE BLOOD COUNT 11.2 K/mm3 (4.0-10.0)
[2017-06-07] MEDS ORDERED: DEXTROSE 5%-WATER 100 ML IVPB ONE (09:18)
[2017-06-07] MEDS: CEFTRIAXONE 2 GM in DEXTROSE 5%-WATER 100 ML IVPB SCH (09:22)
[2017-06-07] MEDS: MUPIROCIN 2% TOPICAL OINTMENT FOR DECOLONIZATION NS SCH ×2 (09:23→21:08)
[2017-06-07] MEDS: HEPARIN NA (PORCINE) 5,000 UNITS/ML 1ML VIAL SQ SCH ×2 (09:23→21:12)
[2017-06-07] MEDS: SERTRALINE HCL 50 MG TABLET (FP) PO SCH (09:23)
[2017-06-07] MEDS: LORazepam 1 MG TABLET PO SCH ×2 (09:23→21:12)
[2017-06-07 09:33] LABS: ALBUMIN 2.3 g/dl (3.4-5.0); ANION GAP 9 (8-16); CO2 23 mmol/L (21-32); CREATININE 0.8 mg/dL (0.55-1.02); GLUCOSE,RANDOM 88 mg/dL (74-106); SGOT/AST 37 U/L (15-37); SGPT/ALT 48 U/L (12-78)
[2017-06-07 09:36] LABS: ALK PHOS 265 U/L (45-117); BILIRUBIN,TOTAL 0.7 mg/dL (0.2-1.0); CALCIUM 9.1 mg/dL (8.5-10.1); TOT PROT 5.9 g/dl (6.4-8.2)
--- NOTE | 2017-06-07 09:46 | PN ---
Progress Note (short form) - Note Progress Note: patient seen and examined Chart reviewed Comfortable Patient reports she feels better Afebrile WBC trending down Vital Signs Temp 98.4 F 06/07/17 06:00 Pulse 82 06/07/17 06:00 Resp 24 06/07/17 06:00 BP 138/76 06/07/17 06:00 Pulse Ox 97 06/06/17 21:00 Intake & Output 06/06/17 06/06/17 06/07/17 11:59 23:59 11:59 Intake Total 1165 1930 640 Balance 1165 1930 640 Weight 131 lb 9.6 oz 126 lb 8 oz Intake: IV 640 1080 640 Normal Saline - 1,000 ml 640 1080 640 @ 80 mls/hr IV ASDIR ZULEYMA Rx#:[id number] IVPB 100 200 0 Oral 425 650 Other: Voiding Method Toilet Toilet # Unmeasured Voids Void 3 Bowel Movement No No # Bowel Movements 1 Weight Measurement Method Built in Bedscale Built in Bedscale Active Medications Acetaminophen (Tylenol -) 650 mg PO Q6H PRN PRN Reason: FEVER OR PAIN Last Admin: 06/04/17 18:17 Dose: 650 mg Chlorhexidine Gluconate (Hibiclens For Decolonization -) 1 applic TP HS [facility] Last Admin: 06/06/17 22:07 Dose: Not Given Heparin Sodium (Porcine) (Heparin -) 5,000 unit SQ BID [facility] Last Admin: 06/07/17 09:23 Dose: 5,000 unit Sodium Chloride (Normal Saline -) 1,000 mls @ 80 mls/hr IV [facility] Last Admin: 06/07/17 06:17 Dose: 80 mls/hr Ceftriaxone Sodium 2 gm/ (Dextrose) 100 mls @ 200 mls/hr IVPB DAILY [facility] Last Admin: 06/07/17 09:22 Dose: 200 mls/hr Lorazepam (Ativan -) 1 mg PO BID [facility] Last Admin: 06/07/17 09:23 Dose: 1 mg Mupirocin (Bactroban Ointment (For Decolonization) -) 1 applic NS BID [facility] Stop: 06/08/17 21:59 Last Admin: 06/07/17 09:23 Dose: Not Given Sertraline HCl (Zoloft -) 50 mg PO DAILY [facility] Last Admin: 06/07/17 09:23 Dose: 50 mg Zolpidem Tartrate (Ambien -) 10 mg PO HS [facility] Last Admin: 06/06/17 22:09 Dose: 10 mg CBC, BMP 06/07/17 07:30 06/07/17 07:30 Physical exam Constitutional: Yes: No Distress, Calm/ comfortable Cardiovascular: Yes: Regular Rate and Rhythm, Murmur Respiratory: Yes: CTA Bilaterally Gastrointestinal: Yes: Normal Bowel Sounds, Soft. No: Distention, Tenderness Edema: No Assessment and plan clinically getting better Continue antibiotics Daily out of bed to chair Will follow Problem List - Problems (1) Sepsis Code(s): A41.9 - SEPSIS, UNSPECIFIED ORGANISM (2) Pyelonephritis Code(s): N12 - TUBULO-INTERSTITIAL NEPHRITIS, NOT SPCF ACUTE OR CHRONIC (3) Hypotension Code(s): I95.9 - HYPOTENSION, UNSPECIFIED (4) Anxiety Code(s): F41.9 - ANXIETY DISORDER, UNSPECIFIED (5) Depression Code(s): F32.9 - MAJOR DEPRESSIVE DISORDER, SINGLE EPISODE, UNSPECIFIED
[2017-06-07 11:18] LABS: TOTAL CELLS COUNTED 100
[2017-06-07 11:19] LABS: MYELOCYTE 2 % (0-2); PLATELET ESTIMATE ADEQUATE (NORMAL)
--- NOTE | 2017-06-07 13:45 | PN ---
Progress Note, Physician History of Present Illness: History: 52 year old female pmh HTN, AV valve replacement (first in 1998, redone 1 year ago at [facility]), depression/anxiety, and pacemaker presents to the ED with 4 day hx of fever, 1 day hx of nonbloody emesis and diarrhea (now resolved) , and body aches. She states that she doesn't recall any inciting event. She states that she took theraflu for fevers, but the fever did not improve. Denies sick contacts, recent travel. Reports living alone with 2 dogs (pugs). In ED, pt was found to have hypotension (86/39), a lactic acid of 2.5, elevated T. bili and AP, and a Tmax of 101.2. A UA was done, which revealed cloudy urine with (+) leukocyte esterase and many bacteria (nitrite negative). She was transferred to the ICU and ID was consulted for management of suspected urosepsis. We placed her on zosyn 4.5gm IV Q8. Progress: Today, patient is without any current complaints and asks about when she is able to go home. Denies chest pain, SOB, nausea, vomiting, fevers, chills, abdominal pain, diarrhea, dysuria, hematuria. - Current Medication List Current Medications: Active Medications Acetaminophen (Tylenol -) 650 mg PO Q6H PRN PRN Reason: FEVER OR PAIN Last Admin: 06/04/17 18:17 Dose: 650 mg Chlorhexidine Gluconate (Hibiclens For Decolonization -) 1 applic TP HS [facility] Last Admin: 06/06/17 22:07 Dose: Not Given Heparin Sodium (Porcine) (Heparin -) 5,000 unit SQ BID [facility] Last Admin: 06/07/17 09:23 Dose: 5,000 unit Sodium Chloride (Normal Saline -) 1,000 mls @ 80 mls/hr IV ASDIR [facility] Last Admin: 06/07/17 06:17 Dose: 80 mls/hr Ceftriaxone Sodium 2 gm/ (Dextrose) 100 mls @ 200 mls/hr IVPB DAILY [facility] Last Admin: 06/07/17 09:22 Dose: 200 mls/hr Lorazepam (Ativan -) 1 mg PO BID [facility] Last Admin: 06/07/17 09:23 Dose: 1 mg Mupirocin (Bactroban Ointment (For Decolonization) -) 1 applic NS BID [facility] Stop: 06/08/17 21:59 Last Admin: 06/07/17 09:23 Dose: Not Given Sertraline HCl (Zoloft -) 50 mg PO DAILY [facility] Last Admin: 06/07/17 09:23 Dose: 50 mg Zolpidem Tartrate (Ambien -) 10 mg PO HS [facility] Last Admin: 06/06/17 22:09 Dose: 10 mg - Objective Vital Signs: Vital Signs Temperature 98.3 F 06/07/17 08:00 Pulse Rate 74 06/07/17 08:00 Respiratory Rate 20 06/07/17 08:00 Blood Pressure 146/76 06/07/17 08:00 O2 Sat by Pulse Oximetry (%) 98 06/07/17 08:00 Constitutional: Yes: No Distress, Calm Eyes: Yes: Conjunctiva Clear, EOM Intact HENT: Yes: Atraumatic, Normocephalic Neck: Yes: Supple, Trachea Midline Cardiovascular: Yes: Regular Rate and Rhythm, Murmur (Crescendo-Decrescendo systolic murmur appreciated), S1, S2 Respiratory: Yes: Regular, CTA Bilaterally. No: Rales, Rhonchi, SOB, Stridor, Tachypnea, Wheezes Gastrointestinal: Yes: Normal Bowel Sounds, Soft. No: Distention Genitourinary: No: Miller Present, Incontinence, Oliguria, Polyuria Musculoskeletal: Yes: WNL Extremities: Yes: WNL Edema: No Peripheral Pulses WNL: Yes Integumentary: Yes: WNL Neurological: Yes: Alert, Oriented ...Motor Strength: WNL Psychiatric: Yes: Alert, Oriented Labs: CBC, BMP 06/07/17 07:30 06/07/17 07:30 INR, PTT INR 1.28 (0.82-1.09) H 06/04/17 05:00 Problem List - Problems (1) Depression Code(s): F32.9 - MAJOR DEPRESSIVE DISORDER, SINGLE EPISODE, UNSPECIFIED (2) Gram negative septicemia Code(s): A41.50 - GRAM-NEGATIVE SEPSIS, UNSPECIFIED (3) UTI (urinary tract infection) Code(s): N39.0 - URINARY TRACT INFECTION, SITE NOT SPECIFIED Assessment/Plan Microbiology 06/05/17 05:50 Blood - Peripheral Venous Blood Culture - Preliminary NO GROWTH OBTAINED AFTER 48 HOURS, INCUBATION TO CONTINUE FOR 3 DAYS. 06/05/17 05:40 Blood - Peripheral Venous Blood Culture - Preliminary NO GROWTH OBTAINED AFTER 48 HOURS, INCUBATION TO CONTINUE FOR 3 DAYS. 06/03/17 13:51 Blood - Peripheral Venous Blood Culture - Preliminary NO GROWTH OBTAINED AFTER 72 HOURS, INCUBATION TO CONTINUE FOR 2 DAYS. Selected Entries 06/07/17 08:00 Temperature 98.3 F Temperature Oral Source Pulse Rate 74 Respiratory 20 Rate Blood Pressure 146/76 Blood Pressure 99 Mean Laboratory Tests 06/07/17 06/07/17 07:30 07:30 WBC 11.2 H D Hgb 9.7 L Hct 27.9 L Plt Count 451 H D Sodium 141 Potassium 4.3 D Chloride 109 H Carbon Dioxide 23 Anion Gap 9 BUN 10 Creatinine 0.8 52 year old female pmh HTN, AV replacement 1998 (redone last year), anxiety/ depression is being managed in the ICU with suspected urosepsis Urosepsis: Patient appears clinically stable. vitals are normalized. Aware of prosthetic aortic valve. Blood cx initially grew gram (-) bacilli in anaerobic bottle -blood cx neg -cont. rocephin 2g QD -WBC trending down (11.2 today)
[2017-06-07] MEDS: ACETAMINOPHEN 325 MG TABLET (FP) PO PRN (14:21)
--- NOTE | 2017-06-07 14:44 | PN ---
Teaching Attending Note Name of Resident: Joseph Liao ATTENDING PHYSICIAN STATEMENT I saw and evaluated the patient. I reviewed the resident's note and discussed the case with the resident. I agree with the resident's findings and plan as documented. SUBJECTIVE: No complaints No c/o fever/ chills Denies dysuria Temps, WBC improved OBJECTIVE: Cor S1S2 +m lungs clear Abdomen soft,non tender ASSESSMENT AND PLAN: E.coli bacteremia/ sepsis secondary to Fever/ leukocytosis-improved S/P AVR Continue ceftriaxone
--- NOTE | 2017-06-07 19:19 | PN ---
Progress Note, Physician Chief Complaint: Pt is lying in bed; denies chest pain, abdominal pain, dyspnea. History of Present Illness: 52 yr old woman with PMHx metallic aortic valve placed 1998, replaced by bioprosthetic aortic valve 03/2016 at [facility], s/p [employer] DDDR PPM , non-obstructive CAD by coronary angiogram 2015, anxiety/depression, anemia, HTN, hyperlipidemia, chronic lower back pain, insomnia, now admitted with fever and weakness x 4 days, and nausea and vomiting for one day. Denies chest pain or dyspnea; denies dysuria; denies cough. - Current Medication List Current Medications: Active Medications Acetaminophen (Tylenol -) 650 mg PO Q6H PRN PRN Reason: FEVER OR PAIN Last Admin: 06/07/17 14:21 Dose: 650 mg Chlorhexidine Gluconate (Hibiclens For Decolonization -) 1 applic TP HS [facility] Last Admin: 06/06/17 22:07 Dose: Not Given Heparin Sodium (Porcine) (Heparin -) 5,000 unit SQ BID [facility] Last Admin: 06/07/17 09:23 Dose: 5,000 unit Sodium Chloride (Normal Saline -) 1,000 mls @ 80 mls/hr IV ASDIR [facility] Last Admin: 06/07/17 16:18 Dose: 80 mls/hr Ceftriaxone Sodium 2 gm/ (Dextrose) 100 mls @ 200 mls/hr IVPB DAILY [facility] Last Admin: 06/07/17 09:22 Dose: 200 mls/hr Lorazepam (Ativan -) 1 mg PO BID [facility] Last Admin: 06/07/17 09:23 Dose: 1 mg Mupirocin (Bactroban Ointment (For Decolonization) -) 1 applic NS BID [facility] Stop: 06/08/17 21:59 Last Admin: 06/07/17 09:23 Dose: Not Given Sertraline HCl (Zoloft -) 50 mg PO DAILY [facility] Last Admin: 06/07/17 09:23 Dose: 50 mg Zolpidem Tartrate (Ambien -) 10 mg PO HS [facility] Last Admin: 06/06/17 22:09 Dose: 10 mg - Objective Vital Signs: Vital Signs Temperature 98.1 F 06/07/17 14:33 Pulse Rate 73 06/07/17 14:33 Respiratory Rate 20 06/07/17 08:00 Blood Pressure 144/78 09/08/17 14:33 O2 Sat by Pulse Oximetry (%) 98 06/07/17 08:00 Constitutional: Yes: Anxious Eyes: Yes: WNL HENT: Yes: WNL Neck: Yes: WNL Cardiovascular: Yes: Regular Rate and Rhythm Respiratory: Yes: Regular Gastrointestinal: Yes: Soft. No: Tenderness ...Rectal Exam: Yes: Deferred Genitourinary: No: Anuria Musculoskeletal: Yes: WNL Extremities: Yes: WNL Edema: No Peripheral Pulses WNL: Yes Integumentary: Yes: WNL Neurological: Yes: WNL Labs: CBC, BMP 06/07/17 07:30 06/07/17 07:30 INR, PTT INR 1.28 (0.82-1.09) H 06/04/17 05:00 Abnormal Lab Results 06/07/17 06/07/17 07:30 07:30 WBC 11.2 H D RBC 3.19 L Hgb 9.7 L Hct 27.9 L Plt Count 451 H D Monocytes % (Manual) 1 L D Chloride 109 H Alkaline Phosphatase 265 H D Total Protein 5.9 L Albumin 2.3 L Problem List - Problems (1) Anxiety Code(s): F41.9 - ANXIETY DISORDER, UNSPECIFIED (2) Depression Code(s): F32.9 - MAJOR DEPRESSIVE DISORDER, SINGLE EPISODE, UNSPECIFIED (3) Gram negative septicemia Assessment/Plan: antibiotics for E. coli sepsis. Code(s): A41.50 - GRAM-NEGATIVE SEPSIS, UNSPECIFIED (4) LFTs abnormal Code(s): R79.89 - OTHER SPECIFIED ABNORMAL FINDINGS OF BLOOD CHEMISTRY (5) Sepsis Code(s): A41.9 - SEPSIS, UNSPECIFIED ORGANISM (6) UTI (urinary tract infection) Code(s): N39.0 - URINARY TRACT INFECTION, SITE NOT SPECIFIED (7) Aortic valve replaced Code(s): Z95.2 - PRESENCE OF PROSTHETIC HEART VALVE (8) Insomnia Code(s): G47.00 - INSOMNIA, UNSPECIFIED
[2017-06-07] MEDS: CHLORHEXIDINE GLUCONATE 4% CLEANSER FOR DECOLONIZATION TP SCH (21:08)
[2017-06-07] MEDS: ZOLPIDEM TARTRATE 5 MG TABLET PO SCH (21:12)
[2017-06-08] MEDS: ACETAMINOPHEN 325 MG TABLET (FP) PO PRN (05:31)
--- NOTE | 2017-06-08 06:49 | PN ---
Progress Note, Physician History of Present Illness: seen and examined today in nad. states she had a fever this am which resolved after receiving tylenol. no other new complaints. - Current Medication List Current Medications: Active Medications Acetaminophen (Tylenol -) 650 mg PO Q6H PRN PRN Reason: FEVER OR PAIN Last Admin: 06/08/17 05:31 Dose: 650 mg Chlorhexidine Gluconate (Hibiclens For Decolonization -) 1 applic TP HS [facility] Last Admin: 06/07/17 21:08 Dose: Not Given Heparin Sodium (Porcine) (Heparin -) 5,000 unit SQ BID [facility] Last Admin: 06/07/17 21:12 Dose: 5,000 unit Sodium Chloride (Normal Saline -) 1,000 mls @ 80 mls/hr IV ASDIR [facility] Last Admin: 06/07/17 16:18 Dose: 80 mls/hr Ceftriaxone Sodium 2 gm/ (Dextrose) 100 mls @ 200 mls/hr IVPB DAILY [facility] Last Admin: 06/07/17 09:22 Dose: 200 mls/hr Lorazepam (Ativan -) 1 mg PO BID [facility] Last Admin: 06/07/17 21:12 Dose: 1 mg Mupirocin (Bactroban Ointment (For Decolonization) -) 1 applic NS BID [facility] Stop: 06/08/17 21:59 Last Admin: 06/07/17 21:08 Dose: Not Given Sertraline HCl (Zoloft -) 50 mg PO DAILY [facility] Last Admin: 06/07/17 09:23 Dose: 50 mg Zolpidem Tartrate (Ambien -) [address] [facility] Last Admin: 06/07/17 21:12 Dose: 10 mg - Objective Vital Signs: Vital Signs Temperature 101.0 F H 06/08/17 06:00 Pulse Rate 60 06/08/17 06:00 Respiratory Rate 24 06/08/17 06:00 Blood Pressure 99/52 06/08/17 06:00 O2 Sat by Pulse Oximetry (%) 98 06/07/17 21:00 Constitutional: Yes: Well Nourished, No Distress, Calm Eyes: Yes: WNL, Conjunctiva Clear, EOM Intact, PERRL HENT: Yes: WNL, Atraumatic, Normocephalic Neck: Yes: WNL, Supple, Trachea Midline Cardiovascular: Yes: Regular Rate and Rhythm, Murmur, S1, S2. No: Bradycardia, Tachycardia, Pulse Irregular, Bruit, JVD, Gallop, Rub, S3, S4, Varicosities Respiratory: Yes: WNL, Regular, CTA Bilaterally. No: Rales, Rhonchi, Wheezes Gastrointestinal: Yes: WNL, Normal Bowel Sounds, Soft. No: Distention, Tenderness Musculoskeletal: Yes: WNL Extremities: Yes: WNL Edema: No Peripheral Pulses WNL: Yes Peripheral Pulses: Left Doralis Pedis: 2+, Right Dorsalis Pedis: 2+ Integumentary: Yes: WNL Neurological: Yes: Alert, Oriented Psychiatric: Yes: Alert, Oriented Labs: CBC, BMP 06/07/17 07:30 06/07/17 07:30 INR, PTT INR 1.28 (0.82-1.09) H 06/04/17 05:00 - ....Imaging Chest X-ray: Report Reviewed, Image Reviewed EKG: Report Reviewed, Image Reviewed Other: Report Reviewed, Image Reviewed Assessment/Plan 52 year old woman with a history of mechanical AVR 1998 reop BioAVR 03/2016, PPM 05/2016, HTN, HLD, non-obs CAD on cardiac cath 2015, anemia, admitted with UTI/ urosepsis. UTI/Urosepsis -receiving Abx -Ucx showed ecoli -blood culture ngtd -fever this am -ID to f/up AVR-history as above -ECHO: normal LVEF; aortic valve is well-seated; mild-moderate AR -s/p PPM 2015 HTN-variable but adequately controlled -has not required medical rx
[2017-06-08] MEDS: SERTRALINE HCL 50 MG TABLET (FP) PO SCH (09:14)
[2017-06-08] MEDS: LORazepam 1 MG TABLET PO SCH ×2 (09:14→22:11)
[2017-06-08] MEDS: MUPIROCIN 2% TOPICAL OINTMENT FOR DECOLONIZATION NS SCH (09:18)
[2017-06-08] MEDS: HEPARIN NA (PORCINE) 5,000 UNITS/ML 1ML VIAL SQ SCH ×2 (10:06→22:15)
[2017-06-08] MEDS ORDERED: DEXTROSE 5%-WATER 100 ML IVPB ONE (10:26)
[2017-06-08] MEDS: CEFTRIAXONE 2 GM in DEXTROSE 5%-WATER 100 ML IVPB SCH (10:56)
--- NOTE | 2017-06-08 11:46 | PN ---
Progress Note, Physician Chief Complaint: had a temp spike this AM no complaint feels fine no cough, SOB, dysuria, diarrhea - Current Medication List Current Medications: Active Medications Acetaminophen (Tylenol -) 650 mg PO Q6H PRN PRN Reason: FEVER OR PAIN Last Admin: 06/08/17 05:31 Dose: 650 mg Chlorhexidine Gluconate (Hibiclens For Decolonization -) 1 applic TP HS [facility] Last Admin: 06/07/17 21:08 Dose: Not Given Heparin Sodium (Porcine) (Heparin -) 5,000 unit SQ BID [facility] Last Admin: 06/08/17 10:06 Dose: 5,000 unit Sodium Chloride (Normal Saline -) 1,000 mls @ 80 mls/hr IV ASDIR [facility] Last Admin: 06/07/17 16:18 Dose: 80 mls/hr Ceftriaxone Sodium 2 gm/ (Dextrose) 100 mls @ 200 mls/hr IVPB DAILY [facility] Last Admin: 06/08/17 10:56 Dose: 200 mls/hr Lorazepam (Ativan -) 1 mg PO BID [facility] Last Admin: 06/08/17 09:14 Dose: 1 mg Mupirocin (Bactroban Ointment (For Decolonization) -) 1 applic NS BID [facility] Stop: 06/08/17 21:59 Last Admin: 06/08/17 09:18 Dose: Not Given Sertraline HCl (Zoloft -) 50 mg PO DAILY [facility] Last Admin: 06/08/17 09:14 Dose: 50 mg Zolpidem Tartrate (Ambien -) 10 mg PO [facility] Last Admin: 06/07/17 21:12 Dose: 10 mg - Objective Vital Signs: Vital Signs Temperature 98.3 F 06/08/17 09:00 Pulse Rate 78 06/08/17 09:00 Respiratory Rate 24 06/08/17 09:00 Blood Pressure 140/79 06/08/17 09:00 O2 Sat by Pulse Oximetry (%) 99 06/08/17 09:00 Constitutional: Yes: No Distress Cardiovascular: Yes: Regular Rate and Rhythm Respiratory: Yes: CTA Bilaterally Gastrointestinal: Yes: Normal Bowel Sounds, Soft. No: Distention, Tenderness Edema: No Labs: CBC, BMP 06/07/17 07:30 06/07/17 07:30 INR, PTT INR 1.28 (0.82-1.09) H 06/04/17 05:00 Problem List - Problems (1) CALLIE (acute kidney injury) Code(s): N17.9 - ACUTE KIDNEY FAILURE, UNSPECIFIED (2) Anxiety Code(s): F41.9 - ANXIETY DISORDER, UNSPECIFIED (3) Gram negative septicemia Code(s): A41.50 - GRAM-NEGATIVE SEPSIS, UNSPECIFIED (4) H/O heart valve replacement with bioprosthetic valve Code(s): Z95.3 - PRESENCE OF XENOGENIC HEART VALVE (5) Pyelonephritis Code(s): N12 - TUBULO-INTERSTITIAL NEPHRITIS, NOT SPCF ACUTE OR CHRONIC Assessment/Plan PLAN negative blood culturesrepeated re[eat new blood cultures repeat CXR h/o valve placement in 1998 and then in 2014 Blood cultures positive-- ecoli, urine culture positive as well. on iv antibiotic-- changed to ceftriaxone by infectious disease BP is better DVT prophylaxis-- Heparin sc discontinue iv fluids Abd sono- no cholecystitis
--- NOTE | 2017-06-08 14:20 | PN ---
Progress Note, Physician History of Present Illness: Spiked temp earlier today No focal complaint Denies chills No c/o dysuria/ hematuria No chest pain/ cough/ sputum - Current Medication List Current Medications: Active Medications Acetaminophen (Tylenol -) 650 mg PO Q6H PRN PRN Reason: FEVER OR PAIN Last Admin: 06/08/17 05:31 Dose: 650 mg Chlorhexidine Gluconate (Hibiclens For Decolonization -) 1 applic TP HS [facility] Last Admin: 06/07/17 21:08 Dose: Not Given Heparin Sodium (Porcine) (Heparin -) 5,000 unit SQ BID [facility] Last Admin: 06/08/17 10:06 Dose: 5,000 unit Ceftriaxone Sodium 2 gm/ (Dextrose) 100 mls @ 200 mls/hr IVPB DAILY [facility] Last Admin: 06/08/17 10:56 Dose: 200 mls/hr Lorazepam (Ativan -) 1 mg PO BID [facility] Last Admin: 06/08/17 09:14 Dose: 1 mg Mupirocin (Bactroban Ointment (For Decolonization) -) 1 applic NS BID [facility] Stop: 06/08/17 21:59 Last Admin: 06/08/17 09:18 Dose: Not Given Sertraline HCl (Zoloft -) 50 mg PO DAILY [facility] Last Admin: 06/08/17 09:14 Dose: 50 mg Zolpidem Tartrate (Ambien -) 10 mg PO [facility] Last Admin: 06/07/17 21:12 Dose: 10 mg - Objective Vital Signs: Vital Signs Temperature 98.3 F 06/08/17 09:00 Pulse Rate 78 06/08/17 09:00 Respiratory Rate 24 06/08/17 09:00 Blood Pressure 140/79 06/08/17 09:00 O2 Sat by Pulse Oximetry (%) 99 06/08/17 09:00 Constitutional: Yes: No Distress Eyes: Yes: Conjunctiva Clear Cardiovascular: Yes: Regular Rate and Rhythm, S1, S2 Respiratory: Yes: CTA Bilaterally Gastrointestinal: Yes: Normal Bowel Sounds, Soft. No: Tenderness Edema: No Labs: CBC, BMP 06/07/17 07:30 06/07/17 07:30 INR, PTT INR 1.28 (0.82-1.09) H 06/04/17 05:00 Assessment/Plan E coli bacteremia/ sepsis secondary to Temp spike S/P AVR Repeat BC ordered Continue ceftriaxone
[2017-06-08] MEDS: ZOLPIDEM TARTRATE 5 MG TABLET PO SCH (22:11)
--- NOTE | 2017-06-09 07:07 | PN ---
Progress Note, Physician History of Present Illness: seen and examined today in [facility]. no overnight events. no new complaints. denies feeling febrile overnight. - Current Medication List Current Medications: Active Medications Acetaminophen (Tylenol -) 650 mg PO Q6H PRN PRN Reason: FEVER OR PAIN Last Admin: 06/08/17 05:31 Dose: 650 mg Heparin Sodium (Porcine) (Heparin -) 5,000 unit SQ BID [facility] Last Admin: 06/08/17 22:15 Dose: 5,000 unit Ceftriaxone Sodium 2 gm/ (Dextrose) 100 mls @ 200 mls/hr IVPB DAILY [facility] Last Admin: 06/08/17 10:56 Dose: 200 mls/hr Lorazepam (Ativan -) 1 mg PO BID [facility] Last Admin: 06/08/17 22:11 Dose: 1 mg Sertraline HCl (Zoloft -) 50 mg PO DAILY [facility] Last Admin: 06/08/17 09:14 Dose: 50 mg Zolpidem Tartrate (Ambien -) 10 mg PO HS [facility] Last Admin: 06/08/17 22:11 Dose: 10 mg - Objective Vital Signs: Vital Signs Temperature 98.0 F 06/09/17 06:00 Pulse Rate 77 06/09/17 06:00 Respiratory Rate 20 06/09/17 06:00 Blood Pressure 140/79 06/09/17 06:00 O2 Sat by Pulse Oximetry (%) 99 06/08/17 09:00 Constitutional: Yes: Well Nourished, No Distress, Calm Eyes: Yes: WNL, Conjunctiva Clear, EOM Intact, PERRL HENT: Yes: WNL, Atraumatic, Normocephalic Neck: Yes: WNL, Supple, Trachea Midline Cardiovascular: Yes: Regular Rate and Rhythm, Murmur, S1, S2. No: Bradycardia, Tachycardia, Pulse Irregular, Bruit, JVD, Gallop, Rub, S3, S4, Varicosities Respiratory: Yes: Regular, CTA Bilaterally. No: Rales, Rhonchi, Wheezes Gastrointestinal: Yes: Normal Bowel Sounds, Soft. No: Distention, Tenderness Musculoskeletal: Yes: WNL Extremities: Yes: WNL Edema: No Peripheral Pulses WNL: Yes Peripheral Pulses: Left Doralis Pedis: 2+, Right Dorsalis Pedis: 2+ Neurological: Yes: Alert, Oriented Psychiatric: Yes: Alert, Oriented Labs: CBC, BMP 06/07/17 07:30 06/07/17 07:30 INR, PTT INR 1.28 (0.82-1.09) H 06/04/17 05:00 - ....Imaging Chest X-ray: Report Reviewed, Image Reviewed EKG: Report Reviewed, Image Reviewed Other: Report Reviewed, Image Reviewed Assessment/Plan 52 year old woman with a history of mechanical AVR 1998 reop BioAVR 03/2016, PPM 05/2016, HTN, HLD, non-obs CAD on cardiac cath 2015, anemia, admitted with UTI/ urosepsis. UTI/Urosepsis -receiving Abx -Ucx and Bcx showed ecoli -repeat blood culture ngtd, new set done yesterday to be followed -no fever since yesterday AVR-history as above -ECHO: normal LVEF; aortic valve is well-seated; mild-moderate AR -s/p PPM 2015 HTN-variable but adequately controlled -has not required medical rx
--- NOTE | 2017-06-09 09:46 | PN ---
Progress Note, Physician Chief Complaint: no temps overnight no complaint feels fine no cough, SOB, dysuria, diarrhea - Current Medication List Current Medications: Active Medications Acetaminophen (Tylenol -) 650 mg PO Q6H PRN PRN Reason: FEVER OR PAIN Last Admin: 06/08/17 05:31 Dose: 650 mg Heparin Sodium (Porcine) (Heparin -) 5,000 unit SQ BID [facility] Last Admin: 06/08/17 22:15 Dose: 5,000 unit Ceftriaxone Sodium 2 gm/ (Dextrose) 100 mls @ 200 mls/hr IVPB DAILY [facility] Last Admin: 06/08/17 10:56 Dose: 200 mls/hr Lorazepam (Ativan -) 1 mg PO BID [facility] Last Admin: 06/08/17 22:11 Dose: 1 mg Sertraline HCl (Zoloft -) 50 mg PO DAILY [facility] Last Admin: 06/08/17 09:14 Dose: 50 mg Zolpidem Tartrate (Ambien -) 10 mg PO HS [facility] Last Admin: 06/08/17 22:11 Dose: 10 mg - Objective Vital Signs: Vital Signs Temperature 98.0 F 06/09/17 06:00 Pulse Rate 77 06/09/17 06:00 Respiratory Rate 20 06/09/17 06:00 Blood Pressure 140/79 06/09/17 06:00 O2 Sat by Pulse Oximetry (%) 99 06/08/17 09:00 Constitutional: Yes: No Distress Cardiovascular: Yes: Regular Rate and Rhythm Respiratory: Yes: CTA Bilaterally Gastrointestinal: Yes: Normal Bowel Sounds, Soft. No: Distention, Tenderness Edema: No Labs: CBC, BMP 06/07/17 07:30 06/07/17 07:30 INR, PTT INR 1.28 (0.82-1.09) H 06/04/17 05:00 Problem List - Problems (1) CALLIE (acute kidney injury) Code(s): N17.9 - ACUTE KIDNEY FAILURE, UNSPECIFIED (2) Anxiety Code(s): F41.9 - ANXIETY DISORDER, UNSPECIFIED (3) Gram negative septicemia Code(s): A41.50 - GRAM-NEGATIVE SEPSIS, UNSPECIFIED (4) H/O heart valve replacement with bioprosthetic valve Code(s): Z95.3 - PRESENCE OF XENOGENIC HEART VALVE (5) Pyelonephritis Code(s): N12 - TUBULO-INTERSTITIAL NEPHRITIS, NOT SPCF ACUTE OR CHRONIC Assessment/Plan PLAN repeat cultures pending repeat CXR -- noted h/o valve placement in 1998 and then in 2014 Blood cultures positive-- ecoli, urine culture positive as well. on iv antibiotic-- changed to ceftriaxone by infectious disease BP is better DVT prophylaxis-- Heparin sc discontinue iv fluids Abd sono- no cholecystitis possible dc if blood cultures negative
--- NOTE | 2017-06-09 09:50 | EKG ---
Test Reason : Blood Pressure : / mmHG Vent. Rate : 074 BPM Atrial Rate : 074 BPM P-R Int : 200 ms QRS Dur : 170 ms QT Int : 518 ms P-R-T Axes : 035 063 078 degrees QTc Int : 574 ms Atrial-sensed ventricular-paced rhythm ABNORMAL ECG Confirmed by MD JACQUE, ZION (2012) on 06/09/2017 9:49:44 AM Referred By: Hazel SIDDIQI Confirmed By:ZION SANTILLAN MD
[2017-06-09] MEDS ORDERED: DEXTROSE 5%-WATER 100 ML IVPB ONE (10:32)
[2017-06-09] MEDS: HEPARIN NA (PORCINE) 5,000 UNITS/ML 1ML VIAL SQ SCH ×2 (10:33→21:55)
[2017-06-09] MEDS: CEFTRIAXONE 2 GM in DEXTROSE 5%-WATER 100 ML IVPB SCH (10:34)
[2017-06-09] MEDS: LORazepam 1 MG TABLET PO SCH ×2 (10:34→21:55)
[2017-06-09] MEDS: SERTRALINE HCL 50 MG TABLET (FP) PO SCH (10:34)
[2017-06-09] MEDS ORDERED: LISINOPRIL 5 MG TABLET (FP) PO ONE (17:30)
[2017-06-09] MEDS: ZOLPIDEM TARTRATE 5 MG TABLET PO SCH (21:55)
[2017-06-10] MEDS ORDERED: DEXTROSE 5%-WATER 100 ML IVPB ONE (09:26)
[2017-06-10] MEDS: HEPARIN NA (PORCINE) 5,000 UNITS/ML 1ML VIAL SQ SCH (09:52)
[2017-06-10] MEDS: SERTRALINE HCL 50 MG TABLET (FP) PO SCH (09:52)
[2017-06-10] MEDS: LORazepam 1 MG TABLET PO SCH (09:52)
[2017-06-10] MEDS ORDERED: LISINOPRIL 5 MG TABLET (FP) PO SCH (10:00)
[2017-06-10] MEDS: CEFTRIAXONE 2 GM in DEXTROSE 5%-WATER 100 ML IVPB SCH (10:18)
--- NOTE | 2017-06-10 12:04 | PN ---
Progress Note (short form) - Note Progress Note: pt seen/ examined. Looks and feels much better Denies any complaints Afebrile all follow-ups noted Vital Signs Temp 98.8 F 06/10/17 09:00 Pulse 93 H 06/10/17 09:00 Resp 20 06/10/17 09:00 BP 133/82 06/10/17 09:00 Pulse Ox 99 06/10/17 09:00 Intake & Output 06/09/17 06/10/17 06/10/17 23:59 11:59 23:59 Intake Total 250 0 Balance 250 0 Weight 118 lb 8 oz Intake: IVPB 50 0 Oral 200 Other: Voiding Method Toilet Toilet # Unmeasured Voids Void 1 Weight Measurement Method [facility] Active Medications Acetaminophen (Tylenol -) 650 mg PO Q6H PRN PRN Reason: FEVER OR PAIN Last Admin: 06/08/17 05:31 Dose: 650 mg Heparin Sodium (Porcine) (Heparin -) 5,000 unit SQ BID [facility] Last Admin: 06/10/17 09:52 Dose: 5,000 unit Ceftriaxone Sodium 2 gm/ (Dextrose) 100 mls @ 200 mls/hr IVPB DAILY [facility] Last Admin: 06/10/17 10:18 Dose: 200 mls/hr Lisinopril (Prinivil) 5 mg PO DAILY [facility] Last Admin: 06/10/17 09:52 Dose: 5 mg Lorazepam (Ativan -) 1 mg PO BID [facility] Last Admin: 06/10/17 09:52 Dose: 1 mg Sertraline HCl (Zoloft -) 50 mg PO DAILY [facility] Last Admin: 06/10/17 09:52 Dose: 50 mg Zolpidem Tartrate (Ambien -) 10 mg PO HS [facility] Last Admin: 06/09/17 21:55 Dose: 10 mg CBC, BMP 06/07/17 07:30 06/07/17 07:30 Microbiology 06/05/17 05:40 Blood Culture - Final Blood - Peripheral Venous NO GROWTH AFTER 5 DAYS INCUBATION 06/05/17 05:50 Blood Culture - Final Blood - Peripheral Venous NO GROWTH AFTER 5 DAYS INCUBATION 06/08/17 14:55 Blood Culture - Preliminary Blood - Peripheral Venous NO GROWTH OBTAINED AFTER 24 HOURS, INCUBATION TO CONTINUE FOR 4 DAYS. 06/08/17 14:40 Blood Culture - Preliminary Blood - Peripheral Venous NO GROWTH OBTAINED AFTER 24 HOURS, INCUBATION TO CONTINUE FOR 4 DAYS. physical exam Constitutional: Yes: No Distress/ comfortable Cardiovascular: Yes: Regular Rate and Rhythm Respiratory: Yes: CTA Bilaterally Gastrointestinal: Yes: Normal Bowel Sounds, Soft. No: Distention, Tenderness Edema: No Neuro--alert and awake Assessment and plan clinically much better No more fever today Antibiotics per ID Follow-up cultures Anticipate discharge tomorrow--if remains afebrile and cultures are negative ID to follow Will follow Discussed with nursing staff also Problem List - Problems (1) Sepsis Code(s): A41.9 - SEPSIS, UNSPECIFIED ORGANISM (2) Pyelonephritis Code(s): N12 - TUBULO-INTERSTITIAL NEPHRITIS, NOT SPCF ACUTE OR CHRONIC (3) Hypotension Code(s): I95.9 - HYPOTENSION, UNSPECIFIED (4) Anxiety Code(s): F41.9 - ANXIETY DISORDER, UNSPECIFIED (5) Depression Code(s): F32.9 - MAJOR DEPRESSIVE DISORDER, SINGLE EPISODE, UNSPECIFIED
--- NOTE | 2017-06-10 12:46 | PN ---
Progress Note, Physician History of Present Illness: 52 yr old woman with PMHx metallic aortic valve placed 1998, replaced by bioprosthetic aortic valve 03/2016 at [facility], s/p [employer] DDDR PPM , non-obstructive CAD by coronary angiogram 2015, anxiety/depression, anemia, HTN, hyperlipidemia, chronic lower back pain, insomnia, now admitted with fever and weakness x 4 days, and nausea and vomiting for one day. Denies chest pain or dyspnea; denies dysuria; denies cough. - Current Medication List Current Medications: Active Medications Acetaminophen (Tylenol -) 650 mg PO Q6H PRN PRN Reason: FEVER OR PAIN Last Admin: 06/08/17 05:31 Dose: 650 mg Heparin Sodium (Porcine) (Heparin -) 5,000 unit SQ BID [facility] Last Admin: 06/10/17 09:52 Dose: 5,000 unit Ceftriaxone Sodium 2 gm/ (Dextrose) 100 mls @ 200 mls/hr IVPB DAILY [facility] Last Admin: 06/10/17 10:18 Dose: 200 mls/hr Lisinopril (Prinivil) 5 mg PO DAILY [facility] Last Admin: 06/10/17 09:52 Dose: 5 mg Lorazepam (Ativan -) 1 mg PO BID [facility] Last Admin: 06/10/17 09:52 Dose: 1 mg Sertraline HCl (Zoloft -) 50 mg PO DAILY [facility] Last Admin: 06/10/17 09:52 Dose: 50 mg Zolpidem Tartrate (Ambien -) 10 mg PO HS [facility] Last Admin: 06/09/17 21:55 Dose: 10 mg - Objective Vital Signs: Vital Signs Temperature 98.8 F 06/10/17 09:00 Pulse Rate 93 H 06/10/17 09:00 Respiratory Rate 20 06/10/17 09:00 Blood Pressure 133/82 06/10/17 09:00 O2 Sat by Pulse Oximetry (%) 99 06/10/17 09:00 Eyes: Yes: WNL, Conjunctiva Clear, EOM Intact HENT: Yes: WNL, Atraumatic, Normocephalic Neck: Yes: WNL, Supple, Trachea Midline Cardiovascular: Yes: Regular Rate and Rhythm, Murmur, S1, S2 Respiratory: Yes: WNL, Regular, CTA Bilaterally Gastrointestinal: Yes: WNL, Normal Bowel Sounds Genitourinary: Yes: WNL Musculoskeletal: Yes: WNL Extremities: Yes: WNL Edema: No Integumentary: Yes: WNL Neurological: Yes: WNL, Alert, Oriented ...Motor Strength: WNL Psychiatric: Yes: WNL Labs: CBC, BMP 06/07/17 07:30 06/07/17 07:30 INR, PTT INR 1.28 (0.82-1.09) H 06/04/17 05:00 Assessment/Plan 52 year old woman with a history of mechanical AVR 1998 reop BioAVR 03/2016, PPM 05/2016, HTN, HLD, non-obs CAD on cardiac cath 2015, anemia, admitted with UTI/ urosepsis. UTI/Urosepsis -receiving Abx -Ucx and Bcx showed ecoli -repeat blood culture ngtd, new set done yesterday to be followed -no fever since yesterday AVR-history as above -ECHO: normal LVEF; aortic valve is well-seated; mild-moderate AR -s/p PPM 2015 HTN-variable but adequately controlled -has not required medical rx
--- NOTE | 2017-06-10 13:34 | PN ---
Progress Note, Physician History of Present Illness: No complaints Ambulatory No dysuria/ hematuria No fever/ chills Afebrile WBC improved - Current Medication List Current Medications: Active Medications Acetaminophen (Tylenol -) 650 mg PO Q6H PRN PRN Reason: FEVER OR PAIN Last Admin: 06/08/17 05:31 Dose: 650 mg Heparin Sodium (Porcine) (Heparin -) 5,000 unit SQ BID [facility] Last Admin: 06/10/17 09:52 Dose: 5,000 unit Ceftriaxone Sodium 2 gm/ (Dextrose) 100 mls @ 200 mls/hr IVPB DAILY [facility] Last Admin: 06/10/17 10:18 Dose: 200 mls/hr Lisinopril (Prinivil) 5 mg PO DAILY [facility] Last Admin: 06/10/17 09:52 Dose: 5 mg Lorazepam (Ativan -) 1 mg PO BID [facility] Last Admin: 06/10/17 09:52 Dose: 1 mg Sertraline HCl (Zoloft -) 50 mg PO DAILY [facility] Last Admin: 06/10/17 09:52 Dose: 50 mg Zolpidem Tartrate (Ambien -) 10 mg PO HS [facility] Last Admin: 06/09/17 21:55 Dose: 10 mg - Objective Vital Signs: Vital Signs Temperature 98.8 F 06/10/17 09:00 Pulse Rate 93 H 06/10/17 09:00 Respiratory Rate 20 06/10/17 09:00 Blood Pressure 133/82 06/10/17 09:00 O2 Sat by Pulse Oximetry (%) 99 06/10/17 09:00 Constitutional: Yes: No Distress Eyes: Yes: Conjunctiva Clear Cardiovascular: Yes: Regular Rate and Rhythm, Murmur, S1, S2 Respiratory: Yes: CTA Bilaterally Gastrointestinal: Yes: Normal Bowel Sounds, Soft. No: Tenderness Genitourinary: No: CVA Tenderness - Left, CVA Tenderness - Right Edema: No Labs: CBC, BMP 06/07/17 07:30 06/07/17 07:30 INR, PTT INR 1.28 (0.82-1.09) H 06/04/17 05:00 Assessment/Plan E coli bacteremia/ sepsis secondary to Temp spike S/P AVR Repeat BC no growth Substitute keflex 500mg po q6h x 7d
--- NOTE | 2017-06-10 15:27 | DS ---
Physical Examination Vital Signs: Vital Signs Temperature 98.8 F 06/10/17 09:00 Pulse Rate 93 H 06/10/17 09:00 Respiratory Rate 20 06/10/17 09:00 Blood Pressure 133/82 06/10/17 09:00 O2 Sat by Pulse Oximetry (%) 99 06/10/17 09:00 Findings/Remarks: see today progress note. Labs: CBC, BMP 06/07/17 07:30 06/07/17 07:30 Discharge Summary Reason For Visit: SEPSIS Current Active Problems CALLIE (acute kidney injury) (Acute) Anxiety (Acute) Aortic valve replaced (Acute) Depression (Acute) Gram negative septicemia (Acute) H/O heart valve replacement with bioprosthetic valve (Acute) Hypotension (Acute) Insomnia (Acute) LFTs abnormal (Acute) Pyelonephritis (Acute) Sepsis (Acute) UTI (urinary tract infection) (Acute) Hospital Course: Patient is a 52 y.o. female with a PMH of Aortic Valve replacement ( biosynthetic valve), HTN, Anxiety/Depression who presented to er -- c/o 4 day h/ o of fever with 1 day h/o vomiting (non-bloody, yellow). also complains of urinary burning pts pmd- Dr. Lovelace. Patient admitted to the hospital Workup revealed patient has Escherichia coli bacteremia Patient treated with IV antibiotics and ID consultation was taken. echocardiogram also done. cardiology also followed Patient now stable for discharge--seen by ID today--and cleared for discharge on Keflex for 7 more days and repeat cultures were negative Will discharge home today meds reconcilled pt to f/u with her pmd in one week. Condition: Improved - Instructions Referrals: Herminio Lovelace MD [Primary Care Provider] - - Home Medications Comprehensive Discharge Medication List: Ambulatory Orders Zolpidem Tartrate [Ambien] 10 mg PO HS 11/02/13 Lorazepam 1 mg PO BID 06/03/17 Sertraline HCl 50 mg PO DAILY 06/03/17 Cephalexin Monohydrate [Keflex -] 500 mg PO Q6HPO #28 cap 06/10/17 Lisinopril [Prinivil] 5 mg PO DAILY tablet 06/10/17
[2017-06-10 15:34] VITALS: BP 141/90; PULSE 84; TEMP 98.6
[2017-06-10] MEDS ORDERED: CEPHALEXIN MONOHYDRATE 500 MG CAPSULE (UD) PO SCH (18:00)
== END 2017-06-10 17:17 | disposition home or self-care (01) | DRG 720 ==
LOC: JER 12:50 → JERBED 16:46 → JICU 19:11 → J6S 06-05 17:20
PROVIDERS: ADMIT Internal Medicine; ATTEND Internal Medicine
DX: A41.51 Sepsis due to Escherichia coli [E. coli] (principal); I10 Essential (primary) hypertension; F41.8 Other specified anxiety disorders; N12 Tubulo-interstitial nephritis, not specified as acute or chronic; A41.9 Sepsis, unspecified organism; N17.9 Acute kidney failure, unspecified; E86.0 Dehydration; E87.2 Acidosis; R79.89 Other specified abnormal findings of blood chemistry; E78.00 Pure hypercholesterolemia, unspecified; M54.5 Low back pain; G47.09 Other insomnia; R01.1 Cardiac murmur, unspecified; N95.9 Unspecified menopausal and perimenopausal disorder; D72.828 Other elevated white blood cell count; D64.9 Anemia, unspecified; Z95.2 Presence of prosthetic heart valve; Z95.0 Presence of cardiac pacemaker
CPT/HCPCS: 36415; 71010-TC; 71020-TC; 76700-TC; 76775-TC; 76856-TC; 80048; 80053; 80061; 80076; 81003; 81015; 82803; 83605; 83721; 83735; 84100; 84443; 84484; 85025; 85610; 85651; 85730; 86140; 86850; 86900; 86901; 87040; 87086; 87186; 93005; 93010; 93306-TC; 94010; 99285-25; J1644